=== PATIENT | male | born 1945 | race Caucasian/White ===

== ENCOUNTER 2021-05-05 09:29 | Inpatient (IN) | payer OTHER, SELFPAY ==
[2021-05-05] VITALS (144 sets, daily range): BP systolic 59–131; BP diastolic 36–67; PULSE 67–104; RESP 2–31; TEMP 36.4–37.2; O2SAT 94–100
--- NOTE | 2021-05-05 09:29 | RT.EKG_ITS ---
APPROVED REPORT Exam: Resting ECG Reason for Exam: WEAKNESS, SYNCOPE Patient Location: E HR:68 bpm ECG Measurements Heart Rate 68 AXIS VA 196 P 67 QRSd 135 QRS 26 QT 447 T -74 QTc 473 Conclusion Sinus rhythm Atrial premature complex. Nonspecific intraventricular conduction delay Nonspecific T abnormalities, diffuse leads.No comparison
--- NOTE | 2021-05-05 09:30 | DI.CT_ITS ---
Exam(s) CT HEAD WO EXAM: CT HEAD WO CLINICAL HISTORY: syncope, blunt trauma. TECHNIQUE: Imaging Protocol: Axial computed tomography images with coronal and sagittal reformatted images were created and reviewed COMPARISON: No exams were available for comparison FINDINGS: Ventricles and Extra axial spaces: Normal in size and morphology for the patient's age. Hemorrhage: None. Cerebral parenchyma: No evidence of an acute territorial infarct. There is an area of encephalomalac ia in the right temporal lobe. There are areas of decreased attenuation in the white matter most con sistent with chronic microvascular ischemic disease. Midline shift: None. Brainstem/Cerebellum: Normal. Calvarium: Normal. Visualized Paranasal sinuses/Mastoids: Clear. Soft Tissues: Unremarkable. IMPRESSION: 1. No acute intracranial process. 2. Results of this exam have been verbally communicated with provider. RADIATION DOSE DELIVERED: 730.77mGy.cm Total DLP DATA REPOSITORY: All CT scans at this facility are submitted to the National Radiology Data Registry (NRDR) Dose Index Registry (DIR) with the [employer] (ACR). RADIATION OPTIMIZATION: All CT scans at this facility use at least one of these dose optimization te chniques: automated exposure control; mA and/or kV adjustment per patient size (includes targeted exa ms where dose is matched to clinical indication); or iterative reconstruction.
--- NOTE | 2021-05-05 09:30 | DI.CT_ITS ---
Exam(s) CT CHEST/ABD/PEL W EXAM: CT CHEST/ABD/PEL W CLINICAL HISTORY: Syncope, GI bleed, epigastric pain TECHNIQUE: Imaging Protocol: Axial computed tomography images with coronal and sagittal reformatted images were created and reviewed CONTRAST MATERIAL: Intravenous: Omnipaque 350 Contrast volume:99 mL Oral: No COMPARISON: No exams were available for comparison FINDINGS: CHEST: Tracheobronchial tree: Patent where visualized. Pulmonary parenchyma: There is a small infiltrate seen in the right middle lobe. No suspicious pulmon cesilia nodules. Mild paraseptal emphysematous changes are present. Visualized thyroid gland: Unremarkable. Mediastinum and Sho: No dominant adenopathy or fluid collection. There is mild of diffuse thickening of the wall of the proximal esophagus. Pleura: No effusion or pneumothorax. Heart: The heart is not dilated. Coronary artery calcification. No pericardial effusion. Aorta: Thoracic aorta non-dilated. Atherosclerosis. Lymph nodes: Within normal limits. Soft tissues: Unremarkable. Bones:Age-appropriate degenerative changes. ABDOMEN: Liver: Normal density. Multiple round hypodensities are seen throughout the liver. The largest is in the left lobe measures 3 x 2.6 cm. Portal, Superior Mesenteric, and Splenic Veins: Unremarkable. Gallbladder and Biliary Tract: No radiodense calculus or dilation. Pancreas: Normal density, no abnormal calcifications or inflammatory process. Spleen: Normal. Adrenals: No masses seen. Kidneys: Normal size, contour and axis. No radiodense stones or obstructive uropathy. There are bilat eral simple cysts. The largest is in the midpole of the left kidney and measures 3.9 x 3.6 cm. Ther e is a hyperdense 1.6 x 1.3 cm exophytic nodule in the midpole of the right kidney posteriorly. This should be further evaluated with an ultrasound or MRI. Abdominal Aorta: Abdominal portion non-dilated. Atherosclerosis. Bowel: No obstruction or bowel wall thickening. Appendix is unremarkable. Extensive diverticulosis, b ut no evidence of acute diverticulitis. Peritoneal Cavity: No ascites, collection or mesenteric inflammatory response. No free air. Lymph Nodes: Within normal limits. Bones: Within normal limits for the patient's age. Soft Tissues: Small fat containing bilateral inguinal hernia. Surgical clips are seen in the pelvis. PELVIS: Bladder: Symmetric distention, no gross wall thickening. Reproductive Organs: Prior prostatectomy. Lymph Nodes: Within normal limits. Bones: Within normal limits. IMPRESSION: 1. No acute abdominal pelvic process. 2. 1.6 x 1.3 cm exophytic hyperdense right renal nodule. This may represent a hemorrhagic cyst, but f urther evaluation with an MRI is recommended. 3. Thickening of the wall of the proximal esophagus. Differential considerations include infectious/i nflammatory esophagitis or mass. This should be further evaluated with upper GI barium examination or upper endoscopy. 4. Small right middle lobe infiltrate. 5. Results of this exam have been verbally communicated with provider. Incidental Findings RADIATION DOSE DELIVERED: 1,249.6mGy.cm Total DLP DATA REPOSITORY: All CT scans at this facility are submitted to the National Radiology Data Registry (NRDR) Dose Index Registry (DIR) with the [employer] (ACR). RADIATION OPTIMIZATION: All CT scans at this facility use at least one of these dose optimization te chniques: automated exposure control; mA and/or kV adjustment per patient size (includes targeted exa ms where dose is matched to clinical indication); or iterative reconstruction.
--- NOTE | 2021-05-05 09:33 | W.ED.GENAD ---
Discharge Plan Disposition Patient Disposition: [facility] INPATIENT Condition: Improving Discharge Details Chief Complaint: GI Bleed Clinical Impression: Acute upper GI bleeding Primary Care Provider: Unknown,Unknown ED Provider: Edi Palumbo Home Meds and New Rx's Prescriptions: No Action aspirin [Aspir-81] 81 mg Tablet,Delayed Release (Dr/Ec) 81 mg PO DAILY RF: 0 Vitamin C 1,000 mg Tablet,Chewable 1,000 mg PO DAILY RF: 0 sertraline [Zoloft] 50 mg Tablet 50 mg PO BID RF: 0 Multi M Vitamin Tablet RF: 0 magnesium 200 mg Tablet 400 mg PO DAILY RF: 0 Vitamin D3 100 mcg (4,000 unit) Capsule 100 mcg PO DAILY RF: 0 doxycycline hyclate 120 mg Tablet,Delayed Release (Dr/Ec) 120 mg PO DAILY RF: 0 Medical Decision Making This is a 76-year-old male, patient of the [place], who states yesterday felt weak and had an episode of syncope without harming himself. Yesterday he had noticed dark tarry stool. Again this morning a dark tarry stool, he had 1 episode of coffee-ground emesis and then had a second syncopal event which she is was upright felt weak and fell to the ground striking his head. No prolonged loss of consciousness, denies headache. He is somewhat pale in appearance, normotensive with a pulse of 69. His exam reveals dark, tarry, guaiac positive stool. 2 peripheral IVs placed, screening labs including type and screen obtained. As [facility], we do not have comparison laboratories. Today white blood cell count is 8, hematocrit 27 with hemoglobin of 9.2, platelets 168. Coags unremarkable, chemistries notable for BUN of 65, creatinine 1.1. Troponin negative, SARS-CoV-[address] images are unremarkable of the head, abdomen and pelvis reveals a thickened esophagus, there is a question of subtle right middle lobe and will treat on chest imaging. Patient stable with no further episodes of emesis nor of dark tarry stool. He states he prefers a local hospitalization versus transfer to the [place]. Case discussed with Dr. Chaparro who will admit the patient. She requested I consult surgery for consideration of EGD during hospitalization. HPI General Mode of arrival: EMS. Date/Time Provider Initiated Documentation: 05/05/21 11:34. Information obtained by: patient and EMS. History of Present Illness 76 year old M presents to the emergency department with the chief complaint of Dark tarry stool, coffee-ground emesis, syncope at home, described as moderate, and is localized to the abdomen. Patient reports no radiation. Patient started experiencing this day(s) and it has been intermittent. No relieving factors improve symptom(s), No exacerbating factors reported . Patient notes loss of appetite, nausea/vomiting, syncope and other (Dark tarry stool); denies headaches. Patient did receive the following treatments prior to arrival, NSAID and Aspirin Related Data Home Medications Medication Instructions Recorded Confirmed ascorbic acid (vitamin C) [Vitamin 1,000 mg PO DAILY 05/05/21 05/05/21 C] aspirin [Aspir-81] 81 mg PO DAILY 05/05/21 05/05/21 cholecalciferol (vitamin D3) 100 mcg PO DAILY 05/05/21 05/05/21 [Vitamin D3] doxycycline hyclate 120 mg PO DAILY 05/05/21 05/05/21 magnesium 400 mg PO DAILY 05/05/21 05/05/21 multivitamin with iron-mineral tab 05/05/21 [Multi M Vitamin] sertraline [Zoloft] 50 mg PO BID 05/05/21 05/05/21 Allergies Allergy/AdvReac Type Severity Reaction Status Date / Time No Known Allergies Allergy Unverified 05/05/21 10:26 Review of Systems Narrative: No chest pain. Fully immunized against COVID-19. Denies headache or neck pain. 8 systems reviewed and otherwise negative. Takes aspirin and naproxen daily. [facility] Social History Smoking/Tobacco Use Status: Former Tobacco Use Smoking risk assessment performed?: Yes Alcohol Intake: former Substance use type: does not use Do you feel safe at home: Yes Do you feel safe in your relationship?: Yes Exam Narrative Exam Narrative: GEN: awake, alert, oriented 3. Pleasant, well groomed, interactive. Pale. HEAD: Normocephalic, small abrasion left superior scalp ENT: Mucous membranes moist, oropharynx unremarkable, External ear exam unremarkable EYES: PERRL, EOMI NECK: Full ROM, no CECI, no menigismus CHEST/RESP: Nontender, clear to auscultation bilateral, no wheeze/rhonchi/rales CARDIOVASCULAR: RRR, no murmur, rub zoë. 2+ Rad pulse bilateral ABDOMEN: Soft, nontender, no mass. +Bowel sounds. Dark tarry stool, guaiac positive. EXT: Full ROM, no edema, no rash Neuro: Grossly normal neurologic exam, conversant, interactive. Psych: Speech fluent, thoughts congruent, affect normal
[2021-05-05 09:49] LABS: Abs Immature Grans 0.06 10^3/uL (0.0-0.06); Absolute Basophil Count 0.05 10^3/uL (0.0-0.2); Absolute Eosinophil Count 0.18 10^3/uL (0.0-0.7); Absolute Lymphocyte Count 2.14 10^3/uL (1.2-3.4); Absolute Monocyte Count 0.58 10^3/uL (0.1-0.8); Absolute Neutrophil Count 5.84 10^3/uL (1.2-6.7); Basophils % 0.6; HCT 27.5 % (40.0-50.0); HGB 9.2 g/dL (13.5-17.5); Immature Grans % 0.7; Lymphocytes % 24.2; MCH 33.8 pg (27.0-33.0); MCHC 33.5 % (32.0-36.0); MCV 101.1 fL (80-95); MPV 12.3 fL (8.0-11.0); Monocytes % 6.6; Neutrophils % 65.9; Nucleated RBC 0 %; Platelet Count 168 10^3/uL (130-400); RBC 2.72 10^6/uL (4.36-5.78); RDW 13.4 % (11.8-14.1); RDW-SD 49.8 fL; WBC 8.85 10^3/uL (4.4-10.8)
[2021-05-05] MEDS: Pantoprazole 40 MG VIAL 80 MG IVP (09:50)
[2021-05-05] MEDS: Ondansetron 4 MG/2 ML VIAL IVP (09:50)
[2021-05-05] MEDS: PANTOPRAZOLE 80 MG in Normal Saline 100 ML 10 MG IV (09:58)
[2021-05-05 10:00] LABS: INR 1.1 (0.9-1.1); Prothrombin Time 10.6 sec (9.3-11.0)
[2021-05-05 10:04] LABS: ALT 20 U/L (16-63); AST 10 U/L (15-37); Albumin 3.1 g/dL (3.4-5.0); Alkaline Phosphatase 48 U/L (46-116); Anion Gap 6.4 mmol/L (3-11); BUN 65 mg/dL (7-18); Bilirubin, Total 0.5 mg/dL (0.2-1.0); CO2 26.6 mmol/L (21.0-32.0); CREATININE 1.1 mg/dL (0.70-1.30); Calcium 7.9 mg/dL (8.5-10.1); Chloride 109 mmol/L (98-107); Glucose 178 mg/dL (74-106); Magnesium 1.9 mg/dL (1.8-2.4); PTT Activated 18.9 sec (21.0-27.5); Sodium 142 mmol/L (136-145); Total Protein 5.5 g/dL (6.4-8.2); Troponin I < 0.05 ng/mL (<0.06)
[2021-05-05 10:17] LABS: Source Nasal/Nares
[2021-05-05] MEDS: Omnipaque 350 MG/ML 100 ML BTL IJ (10:37)
[2021-05-05] MEDS: Normal Saline - Diluent 50 ML VIAL IV (10:38)
[2021-05-05] MEDS: Normal Saline Flush 10 ML SYR IVP ×2 (10:38→20:55)
[2021-05-05] MEDS: Normal Saline 1,000 ML 125 ML IV ×3 (10:50→21:00)
[2021-05-05 11:08] LABS: COVID-19 PCR Negative (Negative)
--- NOTE | 2021-05-05 12:42 | NUR.NOTE ---
Nursing Note: Spoke with Nhi Lin, [facility], she stated that there were no beds available or services that he needs at this time. Gaviota Busch
--- NOTE | 2021-05-05 14:56 | HPE_ITS ---
Date of service: 05/05/21 Time of Service: 13:45 Assessment and Plan Assessment and plan (1) Upper GI bleeding: Status: Acute Assessment and plan: I suspect this is due to the unfortunate combination of the patient's medications: naprosyn, aspirin, SSRI's effect on platelets, and doxycycline's tendency to cause esophagitis/gastritis. NPO and hold above meds. IVF. Continue protonix drip initiated in the ED. General surgery consulted and is planning on performing an EGD tomorrow. Trend H/H Q6H (2) Anemia due to acute blood loss: Status: Acute Assessment and plan: I have ordered transfusion of 1 unit of pRBCs due to the patient's falling hemoglobin. Trend H/H q6H. Check orthostatics. I suspect that the syncope was due to symptomatic anemia/orthostasis and is the cause of the patient's EKG changes. (3) Syncope: Status: Chronic Assessment and plan: in setting of acute anemia/GI bleeding. Suspect this is due to symptomatic anemia. Cardiac monitoring. Repeat troponin. EKG changes are probably due to anemia - but would benefit from an echo once adequately transfused. (4) Lung infiltrate: Status: Acute Assessment and plan: Possible aspiration pneumonitis. The patient does not have a cough or sx of pneumonia. Will monitor. Should he develop sx, would treat with abx. (5) GERD (gastroesophageal reflux disease): Status: Chronic Assessment and plan: The patient should be on PPI and probably abstain from doxycycline in the future. (6) DVT prophylaxis: Status: Acute Assessment and plan: SCDs (7) Discharge planning issues: Status: Acute Assessment and plan: Full code Admit to ICU Total Critical Care Time 45 minutes. 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 He is not sure how long he was down, but when he came to it, he was nauseated and vomited multiple times - emetic contents were black. In the ED, he was found to have H/H of 9.2/27.5. He was initiated on protonix gtt. Hospitalist admission is requested. EGD is being planned for tomorrow. The patient denies abdominal pain. He does have chronic abdominal discomfort associated with IBS for which he was initiated on SSRI. Review of Systems All systems reviewed & are unremarkable except as noted in HPI and below PFSH Medical History Arthritis Chronic back pain GERD (gastroesophageal reflux disease) H/O prostate cancer IBS (irritable bowel syndrome) Surgical History History of radical prostatectomy S/P colonoscopy Family History Father Heart disease Son Heart disease Brother Heart disease Hypertension Paternal Grandfather Stroke aneurysm Social History Smoking/Tobacco Use Status: Former Tobacco Use Smoking risk assessment performed?: Yes Alcohol Intake: former Substance use type: does not use Do you feel safe at home: Yes Do you feel safe in your relationship?: Yes Meds Allergies and Home Medications Allergies Allergy/AdvReac Type Severity Reaction Status Date / Time No Known Allergies Allergy Unverified 05/05/21 10:26 Home Medications Medication Instructions Recorded Confirmed Type aspirin [Aspir-81] 81 mg PO DAILY 05/05/21 05/05/21 History doxycycline hyclate 120 mg PO DAILY 05/05/21 05/05/21 History naproxen [Naprosyn] 250 mg PO DAILY 05/05/21 05/05/21 History sertraline [Zoloft] 50 mg PO BID 05/05/21 05/05/21 History Exam Narrative Exam Narrative: General: Pleasant elderly male who, while colbert, looks pale, A&Ox3, appears comfortable Neurological: A&Ox3, no focal deficits Psychiatric: appropriate speech pattern/content Skin: Visible skin intact HEENT: Atraumatic, normocephalic, EOMI, MMM, receding gums, no submandibular or cervical lymphadenopathy, no goiter or JVD Cardiovascular: RRR, no m/r/g Lungs: crackles L base, otherwise CTAB Gastrointestinal: soft, nontender, nondistended Genitourinary: deferred Extremities: no edema BLE's, 1+ pedal pulses Results Imaging Additional studies: CT chest/abdomen/pelvis: 1. No acute abdominal pelvic process. 2. 1.6 x 1.3 cm exophytic hyperdense right renal nodule. This may represent a hemorrhagic cyst, but further evaluation with an MRI is recommended. 3. Thickening of the wall of the proximal esophagus. Differential considerations include infectious/inflammatory esophagitis or mass. This should be further evaluated with upper GI barium examination or upper endoscopy. 4. Small right middle lobe infiltrate. 5. Results of this exam have been verbally communicated with provider. EKG: NSR, HR 68, nonspecific ST-T changes (EKG done whiLe patient is anemic) with inferolateral T wave inversions. Labs Result diagrams: 05/05/21 16:13 05/05/21 09:34 Labs: Laboratory Results - last 24 hr 05/05/21 05/05/21 05/05/21 09:34 09:34 09:34 WBC 8.85 RBC 2.72 L Hgb 9.2 L Hct 27.5 L MCV 101.1 H MCH 33.8 H MCHC 33.5 RDW 13.4 Plt Count 168 MPV 12.3 H Immature Gran % 0.7 Neutrophils % 65.9 Lymphocytes % 24.2 Monocytes % 6.6 Eosinophils % 2.0 Basophils % 0.6 Nucleated RBC % 0 Absolute Neutrophils 5.84 Absolute Lymphocytes 2.14 Absolute Monocytes 0.58 Absolute Eosinophils 0.18 Absolute Basophils 0.05 PT 10.6 INR 1.1 APTT Sodium 142 Potassium 4.0 Chloride 109 H Carbon Dioxide 26.6 Anion Gap 6.4 BUN 65 H Creatinine 1.1 Estimated GFR/1.73 m2 >= 60.00 Glucose 178 H Calcium 7.9 L Magnesium 1.9 Total Bilirubin 0.5 AST 10 L ALT 20 Alkaline Phosphatase 48 Troponin I < 0.05 Total Protein 5.5 L Albumin 3.1 L COVID-19 Source SARS-CoV-2 (PCR) Patient ABO/Rh Antibody Screen 05/05/21 05/05/21 05/05/21 09:34 09:34 10:12 WBC RBC Hgb Hct MCV MCH MCHC RDW Plt Count MPV Immature Gran % Neutrophils % Lymphocytes % Monocytes % Eosinophils % Basophils % Nucleated RBC % Absolute Neutrophils Absolute Lymphocytes Absolute Monocytes Absolute Eosinophils Absolute Basophils PT INR APTT 18.9 L Sodium Potassium Chloride Carbon Dioxide Anion Gap BUN Creatinine Estimated GFR/1.73 m2 Glucose Calcium Magnesium Total Bilirubin AST ALT Alkaline Phosphatase Troponin I Total Protein Albumin COVID-19 Source Nasal/Nares SARS-CoV-2 (PCR) Negative Patient ABO/Rh O Positive Antibody Screen NEGATIVE Last Vital Signs Temp 36.8 C 05/05/21 13:34 Pulse 75 05/05/21 13:34 Resp 2 L 05/05/21 13:34 BP 109/55 L 05/05/21 13:34 Pulse Ox 99 05/05/21 13:34
[2021-05-05 16:18] LABS: HCT 23.2 % (40.0-50.0); HGB 7.5 g/dL (13.5-17.5)
[2021-05-05] MEDS: Acetaminophen 325 MG TAB 650 MG PO (20:38)
[2021-05-05] MEDS: diphenhydrAMINE 25 MG CAP PO (20:38)
--- NOTE | 2021-05-05 20:55 | SCONE_ITS ---
Date of service: 05/05/21 Time of Service: 20:55 Assessment and Plan Assessment and plan (1) Upper GI bleeding: Status: Acute Assessment and plan: -PPI drip -carafate -trend hgb EGD in am risks: bleeding/infection/perforation/aspiration/anethesia stop asa/nsaid's. diet & exercise for heart disease. supportiev care 60 minutes spent in consultation today This document was created using voice activated software and may contain errors (2) GERD (gastroesophageal reflux disease): Status: Chronic (3) Acute upper GI bleeding: Status: Acute History of Present Illness Narrative: from ED: his is a 76-year-old male, patient of the [place], who states yesterday felt weak and had an episode of syncope without harming himself. Yesterday he had noticed dark tarry stool. Again this morning a dark tarry stool, he had 1 episode of coffee-ground emesis and then had a second syncopal event which she is was upright felt weak and fell to the ground striking his head. No prolonged loss of consciousness, denies headache. Patient is a 76-year-old male with profound anemia that I am asked to see by Dr. Chaparro. I did review the notes from the ER and from Dr. Mcneill. I definitely agree with her assessment as to the cause of the anemia. Patient is in the ICU and is being aggressively treated for his anemia including PPI, Carafate and blood transfusion. At the time of this interview, the patient is upstairs in the ICU. His accompanies him. He adamantly denies any abdominal pain. He denies any nausea vomiting. He denies any heartburn indigestion type symptoms. He says he has never had stomach problems before. He is not on any stomach medication. He was on aspirin, taking Naprosyn, and was also on doxycycline. He denies any bright red blood per rectum. He was having dark tarry stools yesterday and today only. He has had in colonoscopy in the past. This was done in the [place]. He does not know the results. His thinks he had polyps in the past. sHe does not want type of polyps they were. He is scheduled for colon oscopy at the [place] later this fall. Does require an EGD. We will perform labs in the a.m. Informed consent is obtained explaining risks and benefits of procedure including but not limited to: Bleeding, infection, pneumonia, blood clots, perforation, aspiration, complications of anesthesia, other unforetold complications. Patient himself has never had a heart attack or stroke. His father had a heart attack and both his brothers have had a heart attack so he was on aspirin for prophylaxis. Consults Consult date: 05/05/21 Review of Systems All systems reviewed & are unremarkable except as noted in HPI and below PFSH Medical History Arthritis Chronic back pain GERD (gastroesophageal reflux disease) H/O prostate cancer IBS (irritable bowel syndrome) Surgical History History of radical prostatectomy S/P colonoscopy Family History Father Heart disease Son Heart disease Brother Heart disease Hypertension Paternal Grandfather Stroke aneurysm Social History Smoking/Tobacco Use Status: Former Tobacco Use Smoking risk assessment performed?: Yes Alcohol Intake: former Substance use type: does not use Do you feel safe at home: Yes Do you feel safe in your relationship?: Yes Exam Cardio Rate: regular rate Rhythm: regular rhythm GI Palpation: soft Other: no abdominal pain. good BS Extrem General: no clubbing, cyanosis or edema Results Last Vital Signs Temp 36.8 C 05/05/21 13:34 Pulse 82 05/05/21 15:16 Resp 16 05/05/21 15:20 BP 89/52 L 05/05/21 15:16 Pulse Ox 99 05/05/21 15:20 Labs Result diagrams: 05/05/21 16:13 05/05/21 09:34 Labs: Laboratory Results - last 24 hr 05/05/21 05/05/21 05/05/21 09:34 09:34 09:34 WBC 8.85 RBC 2.72 L Hgb 9.2 L Hct 27.5 L MCV 101.1 H MCH 33.8 H MCHC 33.5 RDW 13.4 Plt Count 168 MPV 12.3 H Immature Gran % 0.7 Neutrophils % 65.9 Lymphocytes % 24.2 Monocytes % 6.6 Eosinophils % 2.0 Basophils % 0.6 Nucleated RBC % 0 Absolute Neutrophils 5.84 Absolute Lymphocytes 2.14 Absolute Monocytes 0.58 Absolute Eosinophils 0.18 Absolute Basophils 0.05 PT 10.6 INR 1.1 APTT Sodium 142 Potassium 4.0 Chloride 109 H Carbon Dioxide 26.6 Anion Gap 6.4 BUN 65 H Creatinine 1.1 Estimated GFR/1.73 m2 >= 60.00 Glucose 178 H Calcium 7.9 L Magnesium 1.9 Total Bilirubin 0.5 AST 10 L ALT 20 Alkaline Phosphatase 48 Troponin I < 0.05 Total Protein 5.5 L Albumin 3.1 L COVID-19 Source SARS-CoV-2 (PCR) Patient ABO/Rh Antibody Screen Crossmatch 05/05/21 05/05/21 05/05/21 09:34 09:34 10:12 WBC RBC Hgb Hct MCV MCH MCHC RDW Plt Count MPV Immature Gran % Neutrophils % Lymphocytes % Monocytes % Eosinophils % Basophils % Nucleated RBC % Absolute Neutrophils Absolute Lymphocytes Absolute Monocytes Absolute Eosinophils Absolute Basophils PT INR APTT 18.9 L Sodium Potassium Chloride Carbon Dioxide Anion Gap BUN Creatinine Estimated GFR/1.73 m2 Glucose Calcium Magnesium Total Bilirubin AST ALT Alkaline Phosphatase Troponin I Total Protein Albumin COVID-19 Source Nasal/Nares SARS-CoV-2 (PCR) Negative Patient ABO/Rh O Positive Antibody Screen NEGATIVE Crossmatch See Detail 05/05/21 16:13 WBC RBC Hgb 7.5 L Hct 23.2 L MCV MCH MCHC RDW Plt Count MPV Immature Gran % Neutrophils % Lymphocytes % Monocytes % Eosinophils % Basophils % Nucleated RBC % Absolute Neutrophils Absolute Lymphocytes Absolute Monocytes Absolute Eosinophils Absolute Basophils PT INR APTT Sodium Potassium Chloride Carbon Dioxide Anion Gap BUN Creatinine Estimated GFR/1.73 m2 Glucose Calcium Magnesium Total Bilirubin AST ALT Alkaline Phosphatase Troponin I Total Protein Albumin COVID-19 Source SARS-CoV-2 (PCR) Patient ABO/Rh Antibody Screen Crossmatch
[2021-05-05] MEDS: Sucralfate 1 GM TAB PO (22:46)
[2021-05-06] VITALS (111 sets, daily range): BP systolic 81–122; BP diastolic 33–64; PULSE 58–97; RESP 11–31; TEMP 36.7–37.5; TEMPC 36.1; O2SAT 79–100; BMI 22.2
[2021-05-06] MEDS: IRON SUCROSE COMPLEX 200 MG in Normal Saline 100 ML 400 MG IVPB (00:38)
[2021-05-06 02:48] LABS: HGB 7.7 g/dL (13.5-17.5)
[2021-05-06 03:05] LABS: Troponin I < 0.05 ng/mL (<0.06)
[2021-05-06] MEDS: Normal Saline 1,000 ML 125 ML IV (04:34)
[2021-05-06 07:15] LABS: Abs Immature Grans 0.02 10^3/uL (0.0-0.06); Absolute Basophil Count 0.03 10^3/uL (0.0-0.2); Absolute Lymphocyte Count 1.52 10^3/uL (1.2-3.4); Absolute Monocyte Count 0.33 10^3/uL (0.1-0.8); Basophils % 0.5; Eosinophils % 3.4; HGB 7.7 g/dL (13.5-17.5); Immature Grans % 0.3; Lymphocytes % 25.9; MCH 32.9 pg (27.0-33.0); MCHC 32.1 % (32.0-36.0); MCV 102.6 fL (80-95); MPV 12.6 fL (8.0-11.0); Monocytes % 5.6; Neutrophils % 64.3; Nucleated RBC 0 %; Platelet Count 121 10^3/uL (130-400); RBC 2.34 10^6/uL (4.36-5.78); RDW 14.7 % (11.8-14.1); RDW-SD 54.8 fL; WBC 5.86 10^3/uL (4.4-10.8)
[2021-05-06 07:28] LABS: Anion Gap 3.7 mmol/L (3-11); BUN 31 mg/dL (7-18); CO2 28.3 mmol/L (21.0-32.0); Calcium 7.6 mg/dL (8.5-10.1); Chloride 113 mmol/L (98-107); Glucose 92 mg/dL (74-106); Magnesium 1.9 mg/dL (1.8-2.4); Potassium 3.9 mmol/L (3.5-5.1); Sodium 145 mmol/L (136-145)
--- NOTE | 2021-05-06 07:46 | ANES.PREOP_ITS ---
General Info Date of Service Date Performed: 05/06/21 Height: 5 ft 7 in Weight: 64.4 kg Body Mass Index (BMI): 22.2 Surgical Procedure: Operation Date: 05/06/21 08:20 Proposed Procedures Side Surgeon p Gastroscopy Samira Richardson DO Meds Allergies and Home Medications Allergies Allergy/AdvReac Type Severity Reaction Status Date / Time No Known Allergies Allergy Unverified 05/05/21 10:26 Home Medication Medication Instructions Recorded aspirin [Aspir-81] 81 mg PO DAILY 05/05/21 doxycycline hyclate 120 mg PO DAILY 05/05/21 naproxen [Naprosyn] 250 mg PO DAILY 05/05/21 sertraline [Zoloft] 50 mg PO BID 05/05/21 Current Visit Medications: Current Medications Generic Name Dose Route Start Last Admin Trade Name Freq PRN Reason Stop Dose Admin Acetaminophen 650 mg 05/05/21 12:14 Acetaminophen 650 Mg Supp [place] Q4H PRN PRN Acetaminophen 650 mg 05/05/21 23:00 Acetaminophen 325 Mg Tab PO TODAY FRANCHESKA Dimethicone/Zinc Oxide 0 gm 05/05/21 12:14 Misbah Protect Cream 142 Gm Tube TP PRN PRN Diphenhydramine HCl 0 mg 05/05/21 22:15 Diphenhydramine 25 Mg Cap PO TODAY FRANCHESKA Sodium Chloride 500 mls @ 0 mls/hr 05/05/21 09:28 Saline 500ml Bag IV PRN PRN As Directed Ringer's Solution 1,000 mls @ 125 mls/hr 05/06/21 07:30 IV INFUSION FRANCHESKA IV Miscellaneous Supplies 1 each 05/05/21 09:30 Iv Access IV DIRECTED FRANCHESKA Iohexol 100 ml 05/05/21 10:45 05/05/21 10:37 Omnipaque 350 Mg/Ml 100 Ml Btl IJ 06/04/21 23:59 100 ml DIRECTED FRANCHESKA Administration Ondansetron HCl 4 mg 05/05/21 12:18 Ondansetron 4 Mg/2 Ml Vial IVP Q6H PRN PRN Pantoprazole Sodium 40 mg 05/06/21 08:30 Pantoprazole 40 Mg Vial IVP BID FRANCHESKA Sodium Chloride 0 ml 05/05/21 09:28 05/05/21 20:55 Normal Saline Flush 10 Ml Syr IVP 40 ml PRN PRN Administration Sodium Chloride 50 ml 05/05/21 10:45 05/05/21 10:38 Normal Saline - Diluent 50 Ml Vial IV 50 ml .FOR DI USE FRANCHESKA Administration Sucralfate 1 gm 05/05/21 22:00 05/05/21 22:46 Sucralfate 1 Gm Tab PO 1 gm AC & HS FRANCHESKA Administration PFSH Active Problems Active Problems: Problem Status Onset Code Lung infiltrate R91.8 Discharge planning issues Z02.9 DVT prophylaxis Z29.9 Syncope R55 Anemia due to acute blood loss D62 Upper GI bleeding K92.2 GERD (gastroesophageal reflux disease) K21.9 Acute upper GI bleeding K92.2 Medical History Medical History Arthritis Chronic back pain GERD (gastroesophageal reflux disease) H/O prostate cancer IBS (irritable bowel syndrome) Surgical History Surgical History History of radical prostatectomy S/P colonoscopy Tobacco Smoking/Tobacco Use Status: Former Tobacco Use Alcohol Alcohol Intake: former Substance Use Substance use type: does not use Vital Signs and Lab Results Vital Signs Most Recent Vital Signs in EMR: Most Recent Vital Signs Temp Pulse Resp BP Pulse Ox 37.1 C 86 19 106/56 L 97 05/06/21 04:41 05/06/21 04:41 05/06/21 04:41 05/06/21 04:00 05/06/21 04:41 Lab Results Result Diagrams: 05/06/21 06:25 05/06/21 06:25 Blood Type / Crossmatch: Patient ABO/Rh O Positive 05/05/21 09:34 05/05/21 Antibody Screen NEGATIVE 05/05/21 09:34 05/05/21 Crossmatch See Detail 05/05/21 09:34 05/05/21 Complete Blood Count: White Blood Count 5.86 10^3/uL (4.4-10.8) 05/06/21 06:25 05/06/21 Red Blood Count 2.34 10^6/uL (4.36-5.78) L 05/06/21 06:25 05/06/21 Hemoglobin 7.7 g/dL (13.5-17.5) L 05/06/21 06:25 05/06/21 Hematocrit 24.0 % (40.0-50.0) L 05/06/21 06:25 05/06/21 Platelet Count 121 10^3/uL (130-400) L 05/06/21 06:25 05/06/21 Complete Metabolic Panel: Sodium Level 145 mmol/L (136-145) 05/06/21 06:25 05/06/21 Potassium Level 3.9 mmol/L (3.5-5.1) 05/06/21 06:25 05/06/21 Chloride Level 113 mmol/L (98-107) H 05/06/21 06:25 05/06/21 Carbon Dioxide Level 28.3 mmol/L (21.0-32.0) 05/06/21 06:25 05/06/21 Blood Urea Nitrogen 31 mg/dL (7-18) H 05/06/21 06:25 05/06/21 Creatinine 1.0 mg/dL (0.70-1.30) 05/06/21 06:25 05/06/21 Estimated GFR/1.73 m2 >= 60.00 (mL/min/1.73m2) 05/06/21 06:25 05/06/21 Magnesium Level 1.9 mg/dL (1.8-2.4) 05/06/21 06:25 05/06/21 Calcium Level 7.6 mg/dL (8.5-10.1) L 05/06/21 06:25 05/06/21 Albumin 3.1 g/dL (3.4-5.0) L 05/05/21 09:34 05/05/21 Glucose Level 92 mg/dL (74-106) 05/06/21 06:25 05/06/21 Liver Function Panel: Alanine Aminotransferase (ALT/SGPT) 20 U/L (16-63) 05/05/21 09:34 05/05/21 Aspartate Amino Transf (AST/SGOT) 10 U/L (15-37) L 05/05/21 09:34 05/05/21 Coagulation Panel: INR International Normalized Ratio 1.1 (0.9-1.1) 05/05/21 09:34 05/05/21 Prothrombin Time 10.6 sec (9.3-11.0) 05/05/21 09:34 05/05/21 Activated Partial Thromboplast Time 18.9 sec (21.0-27.5) L 05/05/21 09:34 05/05/21 Cardiac Panel: 2 Troponin I < 0.05 ng/mL (<0.06) 05/06/21 02:30 05/06/21 Arterial Blood Gas: No Data to Display Venous Blood Gas: No Data to Display Pancreas Panel: No Data to Display Thyroid Panel: No Data to Display Infectious Disease: Coronavirus (COVID-19)(PCR) Negative (Negative) 05/05/21 10:12 05/05/21 Coronavirus 2019 Source Nasal/Nares 05/05/21 10:12 05/05/21 Blood Cultures: No Data to Display Toxicology Panel: No Data to Display Imaging and Studies Imaging and Studies EKG Summary: Conclusion Sinus rhythm Atrial premature complex. Nonspecific intraventricular conduction delay Nonspecific T abnormalities, diffuse leads.No comparison 05/05/21 Anesthesia Assessment and Plan Anesthesia History Personal History: No History of Anesthesia Complications Family History: No Family History of Anesthesia Complications Exercise Tolerance Exercise Tolerance: Metabolic Equivalents<4 Pertinent Negatives Pertinent Negatives: No Symptoms of GERD (hx gerd) Cardiac & Pulmonary Exam Cardiac Exam: Normal S1/S2 Heart Sounds Pulmonary Exam: Clear Bilateral Breath Sounds Airway Exam Known Difficult Airway: No Mallampati Class: 2 Mouth Opening: Normal (> 3cm) Thyromental Distance: Greater than 3 cm Neck Range of Motion: Full ROM Neck Circumference: Normal Teeth Condition: Normal Dentition ASA Classification ASA Score: ASA 2 Emergency Case?: Yes NPO Status NPO Status: NPO Clears >2 hours, Solids >8 hours Anesthesia Plan Resuscitation Status: Full Code Anesthesia Technique: General Anesthesia Airway Planned: Natural Airway Monitors Used: Standard Monitors
[2021-05-06 07:52] LABS: Absolute Neutrophil Count 3.77 10^3/uL (1.2-6.7)
[2021-05-06 07:53] LABS: Diff Comment Diff Reviewed; Macrocytosis 1+
--- NOTE | 2021-05-06 08:23 | INITIAL_ITS ---
- If Service Date Differs Date of service: 05/06/21 Time of Service: 08:23 Care Management Initial Assess REASON FOR HOSPITALIZATION:: Upper GI bleeding, symptomatic anemia PAST MEDICAL HISTORY/PAST SURGICAL HISTORY:: Arthritis, chronic back pain, GERD, h/o prostate cancer, IBS, radical prostatectomy, colonoscopy PREVIOUS FUNCTIONAL STATUS/SOCIAL/FAMILY SUPPORTS:: Donald resides in [place], [place] with his spouse, Dahiana. He is independent at baseline in the community. CURRENT FUNCTIONAL STATUS:: Kervin remains in the ICU at this time. ADVANCE DIRECTIVES:: None on file at [facility]. Has patient been provided with info about the portal/API?: No Did the patient sign up for the portal?: No CODE STATUS:: Full Code INSURANCE COVERAGE / FINANCIAL ISSUES:: [facility] CURRENT HOME/COMMUNITY SERVICES/EQUIPMENT:: [place] PRIMARY CARE PHYSICIAN:: GUERDA POTENTIAL DISCHARGE NEEDS:: Follow up appointments. PATIENT/FAMILY EDUCATION NEEDS:: Review discharge instructions, discuss Ask Me Three. ANTICIPATED BARRIERS TO DISCHARGE:: None identified. TRANSPORTATION:: Via private vehicle with his spouse, Dahiana. PLAN:: Kervin continues to be closely treated and monitored at this time. CM continues to follow.
--- NOTE | 2021-05-06 08:31 | W.PM.ENDDOP ---
Date of service: 05/06/21 Time of Service: 08:31 Endoscopy Report DATE OF PROCEDURE: 05/06/21 PRE-OP DIAGNOSIS: GI bleed POST-OP DIAGNOSIS: other (None moderate duodenitis with punctate ulceration/mild gastritis/moderate esophagitis with ulceration and very small hiatal hernia) SURGEON: Samira Richardson ANESTHESIA TYPE: General LMA/ETT ESTIMATED BLOOD LOSS: 2 PATHOLOGY: other COMPLICATIONS: None DISPOSITION: PACU PROCEDURE DESCRIPTION: After informed consent was obtained the patient was take to the procedure room and placed in a supine position. Monitors were applied and a time out was done. The patients name, date of , procedure type, allergies to medications and metal in their body was reviewed. A bite block was placed and the patient was sedated. Once sedated and comfortable the gastroscope was advanced through the oropharynx which was grossly normal into the esophagus. The proximal and mid-esophagus were normal. In the distal esophagus there was no: Varices, diverticulum, stricture apparent. He does have moderate esophagitis with an esophageal ulcer. He does have quite a bit of edema the esophagus this also could represent a small mass in the esophagus multiple biopsies of this area is taken and is friable and bleeds readily but does cease. I did review his CT scan of the chest. The scope was advanced into the stomach and through the pylorus into the 3rd portion of the duodenum. The duodenum was noted: Moderate duodenitis with punctate ulceration. There is no signs of active or old bleeding.. Biopsies were done, all specimens are retrieved and no significant bleeding is noted. The scope was retracted back into the stomach and biopsies were done to rule out H. pylori. There were no ulcers, does have mild gastritis the scope was retroflexed. The cardia and fundus were noted to be normal. There small, 1 cm hiatal hernia noted. The scope was retracted back into the esophagus and biopsies were done of the GE junction to rule out Nathan's. The Z line was regular. The GE junction was at [] cm. The scope was removed and the patient was woken up and taken back to [facility] in stable condition. Follow up: Follow-up in my office in 2 weeks time for hemoglobin check and to review the biopsy results
--- NOTE | 2021-05-06 08:38 | W.PM.PROGNOT ---
Date of Service Date of service: 05/06/21 Time of Service: 11:47 Assessment and Plan Assessment and plan (1) Upper GI bleeding: Status: Acute Assessment and plan: Due to esophageal ulcer/esophagitis, gastritis, duodenitis Switched to protonix boluses. Started on carafate - agree with both. I suspect this is due to the unfortunate combination of the patient's medications: naprosyn, aspirin, SSRI's effect on platelets, and doxycycline's tendency to cause esophagitis/gastritis. Defer diet to general surgery. Getting 1 more unit of blood. The bleeding appears to have stopped. (2) Anemia due to acute blood loss: Status: Acute Assessment and plan: 2nd unit of pRBCs is being transfused. Recheck H/H in am (3) Syncope: Status: Chronic Assessment and plan: in setting of acute anemia/GI bleeding. Suspect this is due to symptomatic anemia. Cardiac monitoring. Repeat troponin. EKG changes are probably due to anemia. Trops negative. Repeat EKG when transfused. Would benefit from an outpatient echo. (4) Lung infiltrate: Status: Acute Assessment and plan: Possible aspiration pneumonitis. The patient does not have a cough or sx of pneumonia. Will monitor. Should he develop sx, would treat with abx. (5) GERD (gastroesophageal reflux disease): Status: Chronic Assessment and plan: The patient should be on PPI and probably abstain from doxycycline in the future. (6) DVT prophylaxis: Status: Acute Assessment and plan: SCDs (7) Discharge planning issues: Status: Acute Assessment and plan: Full code Keep in ICU Total Critical Care Time 30 minutes. Subjective Subjective Interval history since last seen: Down for EGD: esophagitis, esophageal ulcer (not actively bleeding), mild gastritis, duodenitis. VSS. Got 1 unit blood last night. Getting another unit today. No BM/abdominal pain/nausea. UOP 650+/12 hrs. NS@125 cc/hr. Exam Narrative Exam Narrative: General: Pleasant elderly male who, while colbert, looks less pale, A&Ox3, appears comfortable, just waking up from anesthesia HEENT: EOMI, MMM Cardiovascular: RRR, no m/r/g Lungs: CTAB Gastrointestinal: soft, nontender, nondistended Extremities: no edema BLE's, 1+ pedal pulses Objective Last Vital Signs Temp 37.1 C 05/06/21 04:41 Pulse 86 05/06/21 04:41 Resp 19 05/06/21 04:41 BP 106/56 L 05/06/21 04:00 Pulse Ox 97 05/06/21 04:41 Laboratory Results - last 24 hr 05/05/21 05/05/21 05/05/21 09:34 09:34 09:34 WBC 8.85 RBC 2.72 L Hgb 9.2 L Hct 27.5 L MCV 101.1 H MCH 33.8 H MCHC 33.5 RDW 13.4 Plt Count 168 MPV 12.3 H Immature Gran % 0.7 Neutrophils % 65.9 Lymphocytes % 24.2 Monocytes % 6.6 Eosinophils % 2.0 Basophils % 0.6 Nucleated RBC % 0 Absolute Neutrophils 5.84 Absolute Lymphocytes 2.14 Absolute Monocytes 0.58 Absolute Eosinophils 0.18 Absolute Basophils 0.05 RBC Morphology Macrocytosis PT 10.6 INR 1.1 APTT Sodium 142 Potassium 4.0 Chloride 109 H Carbon Dioxide 26.6 Anion Gap 6.4 BUN 65 H Creatinine 1.1 Estimated GFR/1.73 m2 >= 60.00 Glucose 178 H Calcium 7.9 L Magnesium 1.9 Total Bilirubin 0.5 AST 10 L ALT 20 Alkaline Phosphatase 48 Troponin I < 0.05 Total Protein 5.5 L Albumin 3.1 L COVID-19 Source SARS-CoV-2 (PCR) Patient ABO/Rh Antibody Screen Crossmatch 05/05/21 05/05/21 05/05/21 09:34 09:34 10:12 WBC RBC Hgb Hct MCV MCH MCHC RDW Plt Count MPV Immature Gran % Neutrophils % Lymphocytes % Monocytes % Eosinophils % Basophils % Nucleated RBC % Absolute Neutrophils Absolute Lymphocytes Absolute Monocytes Absolute Eosinophils Absolute Basophils RBC Morphology Macrocytosis PT INR APTT 18.9 L Sodium Potassium Chloride Carbon Dioxide Anion Gap BUN Creatinine Estimated GFR/1.73 m2 Glucose Calcium Magnesium Total Bilirubin AST ALT Alkaline Phosphatase Troponin I Total Protein Albumin COVID-19 Source Nasal/Nares SARS-CoV-2 (PCR) Negative Patient ABO/Rh O Positive Antibody Screen NEGATIVE Crossmatch See Detail 05/05/21 05/06/21 05/06/21 16:13 02:30 02:30 WBC RBC Hgb 7.5 L 7.7 L Hct 23.2 L 24.0 L MCV MCH MCHC RDW Plt Count MPV Immature Gran % Neutrophils % Lymphocytes % Monocytes % Eosinophils % Basophils % Nucleated RBC % Absolute Neutrophils Absolute Lymphocytes Absolute Monocytes Absolute Eosinophils Absolute Basophils RBC Morphology Macrocytosis PT INR APTT Sodium Potassium Chloride Carbon Dioxide Anion Gap BUN Creatinine Estimated GFR/1.73 m2 Glucose Calcium Magnesium Total Bilirubin AST ALT Alkaline Phosphatase Troponin I < 0.05 Total Protein Albumin COVID-19 Source SARS-CoV-2 (PCR) Patient ABO/Rh Antibody Screen Crossmatch 05/06/21 05/06/21 06:25 06:25 WBC 5.86 D RBC 2.34 L Hgb 7.7 L Hct 24.0 L MCV 102.6 H MCH 32.9 MCHC 32.1 RDW 14.7 H Plt Count 121 L MPV 12.6 H Immature Gran % 0.3 Neutrophils % 64.3 Lymphocytes % 25.9 Monocytes % 5.6 Eosinophils % 3.4 Basophils % 0.5 Nucleated RBC % 0 Absolute Neutrophils 3.77 Absolute Lymphocytes 1.52 Absolute Monocytes 0.33 Absolute Eosinophils 0.20 Absolute Basophils 0.03 RBC Morphology See Below Macrocytosis 1+ PT INR APTT Sodium 145 Potassium 3.9 Chloride 113 H Carbon Dioxide 28.3 Anion Gap 3.7 BUN 31 H D Creatinine 1.0 Estimated GFR/1.73 m2 >= 60.00 Glucose 92 D Calcium 7.6 L Magnesium 1.9 Total Bilirubin AST ALT Alkaline Phosphatase Troponin I Total Protein Albumin COVID-19 Source SARS-CoV-2 (PCR) Patient ABO/Rh Antibody Screen Crossmatch
--- NOTE | 2021-05-06 08:48 | NUR.NOTE ---
RN speaks to lab and reports blood bank ID is incorrect; patient 's name is spelled wrong. New blood bank ID will need to be placed by lab. technical associate agrees and will get to same as soon as patient returns from OR where he is undergoing an EGD.Nursing Note:
[2021-05-06] MEDS: Normal Saline 1,000 ML 80 ML IV (08:51)
--- NOTE | 2021-05-06 09:00 | STOM_PTH ---
PATIENT: Kervin Bailey LOC: U#:[id number] AGE/SX: 76/M ROOM: 208 RE05/05/[address]: Louisa Chaparro : 1945 BED: A DIS: 05/10/2021 SPEC #: [id number] RECD: 05/06/21 12:35 STATUS: SOUBurak REQ #: [id number] YESENIA: 05/06/21 09:[address]: Louisa Chaparro DEPT: Surgical Specimen RECD BY: Teena Graves ENTERED: 05/06/21 12:38 SP TYPE: STOMACH OTHR DR: Samira Richardson Unknown,Unknown Tissues: 1 - BIOPSY BOWEL 2 - BIOPSY BOWEL 3 - STOMACH BIOPSY 4 - STOMACH BIOPSY 5 - ESOPHAGUS BIOPSY 6 - ESOPHAGUS BIOPSY Procedures: GROSS AND MICRO LEVEL 4 Comments: [id number]
--- NOTE | 2021-05-06 09:32 | W.ANESPOSTOP ---
Postoperative Evaluation Date, Time and Location Date Performed: 05/06/21 Time Performed: 09:32 Patient Location: PACU Vital Signs Most Recent Imported Vital Signs: Most Recent Vital Signs Temp Pulse Resp BP Pulse Ox 37.1 C 86 19 106/56 L 97 05/06/21 04:41 05/06/21 04:41 05/06/21 04:41 05/06/21 04:00 05/06/21 04:41 Most Recent Manually Entered Vital Signs: Adult Blood Pressure: 97/52 Heart Rate: 72 Respirations: 14 Oxygen Saturation (%): 97 Temperature (C): 36.1 C Pain Score (0-10 Scale): 0 Pain Score Most Recent Pain Score: Most Recent Pain Score Pain Level 0 05/06/21 04:41 Assessment Mental Status: Awake (Alert & Oriented to Patient Baseline) Airway and Respiratory Function: Patent airway with normal (patient baseline) respiratory exam Cardiovascular Function: Hemodynamically Stable Hydration Status: Adequately Hydrated Nausea & Vomiting: No Nausea or Vomiting Pain: Pt. Denies Any Pain Peripheral Nerve Block: Patient did not receive a nerve block
[2021-05-06] MEDS: Lactated Ringers 1,000 ML 125 ML IV (10:29)
[2021-05-06] MEDS: Sucralfate 1 GM TAB PO ×4 (10:30→22:12)
[2021-05-06] MEDS: Pantoprazole 40 MG VIAL IVP ×2 (10:31→19:56)
--- NOTE | 2021-05-06 10:39 | NUR.NOTE ---
Lab affixes new blood bank band.Nursing Note:
--- NOTE | 2021-05-06 10:52 | NUR.NOTE ---
Patient says he drinks 5 cans of carbonated water per day. Nursing Note:
[2021-05-06] MEDS: Lactated Ringers 500 ML IV (11:57)
--- NOTE | 2021-05-06 12:10 | W.PM.PROGNOT ---
Date of Service Date of service: 05/06/21 Time of Service: 10:10 Assessment and Plan Assessment and plan (1) Upper GI bleeding: Status: Acute Assessment and plan: POD#0 s/p EGD -Continue supportive care, PPI, Carafate -Hb 7.7 this AM, repeat for 6pm pending -F/u results of EGD done today -further recommendations to follow (2) Anemia due to acute blood loss: Status: Acute (3) Lung infiltrate: Status: Acute (4) Syncope: Status: Chronic Qualifiers: Syncope type: unspecified Qualified Code(s): R55 - Syncope and collapse (5) GERD (gastroesophageal reflux disease): Status: Chronic Qualifiers: Esophagitis presence: esophagitis presence not specified Qualified Code(s): K21.9 - Gastro-esophageal reflux disease without esophagitis Subjective Subjective Patient reports: no new complaints and feels better; denies bowel movement, nausea and vomiting Exam Const General: cooperative, comfortable and no acute distress Resp Effort & Inspection: normal respiratory effort, no audible wheezes and no respiratory distress GI Inspection: normal to inspection Palpation: soft, no guarding and nontender Skin General skin exam: no rashes or lesions noted Neuro General: patient alert, patient awake and patient oriented x3 Objective Last Vital Signs Temp 98.2 F 05/06/21 12:08 Pulse 77 05/06/21 12:08 Resp 20 05/06/21 12:08 BP 104/45 L 05/06/21 12:08 Pulse Ox 94 05/06/21 12:08 Laboratory Results - last 24 hr 05/05/21 05/05/21 05/06/21 09:34 16:13 02:30 WBC RBC Hgb 7.5 L Hct 23.2 L MCV MCH MCHC RDW Plt Count MPV Immature Gran % Neutrophils % Lymphocytes % Monocytes % Eosinophils % Basophils % Nucleated RBC % Absolute Neutrophils Absolute Lymphocytes Absolute Monocytes Absolute Eosinophils Absolute Basophils RBC Morphology Macrocytosis Sodium Potassium Chloride Carbon Dioxide Anion Gap BUN Creatinine Estimated GFR/1.73 m2 Glucose Calcium Magnesium Troponin I < 0.05 Patient ABO/Rh O Positive Antibody Screen NEGATIVE Crossmatch See Detail 05/06/21 05/06/21 05/06/21 02:30 06:25 06:25 WBC 5.86 D RBC 2.34 L Hgb 7.7 L 7.7 L Hct 24.0 L 24.0 L MCV 102.6 H MCH 32.9 MCHC 32.1 RDW 14.7 H Plt Count 121 L MPV 12.6 H Immature Gran % 0.3 Neutrophils % 64.3 Lymphocytes % 25.9 Monocytes % 5.6 Eosinophils % 3.4 Basophils % 0.5 Nucleated RBC % 0 Absolute Neutrophils 3.77 Absolute Lymphocytes 1.52 Absolute Monocytes 0.33 Absolute Eosinophils 0.20 Absolute Basophils 0.03 RBC Morphology See Below Macrocytosis 1+ Sodium 145 Potassium 3.9 Chloride 113 H Carbon Dioxide 28.3 Anion Gap 3.7 BUN 31 H D Creatinine 1.0 Estimated GFR/1.73 m2 >= 60.00 Glucose 92 D Calcium 7.6 L Magnesium 1.9 Troponin I Patient ABO/Rh Antibody Screen Crossmatch 05/06/21 06:25 WBC RBC Hgb Hct MCV MCH MCHC RDW Plt Count MPV Immature Gran % Neutrophils % Lymphocytes % Monocytes % Eosinophils % Basophils % Nucleated RBC % Absolute Neutrophils Absolute Lymphocytes Absolute Monocytes Absolute Eosinophils Absolute Basophils RBC Morphology Macrocytosis Sodium Potassium Chloride Carbon Dioxide Anion Gap BUN Creatinine Estimated GFR/1.73 m2 Glucose Calcium Magnesium Troponin I Patient ABO/Rh O Positive Antibody Screen NEGATIVE Crossmatch See Detail
--- NOTE | 2021-05-06 13:09 | W.PULMCC ---
General Date of Service Date of service: 05/06/21 Time of Service: 08:00 Reason for Admission to ICU: Upper GI bleeding Assessment and Plan Assessment and plan (1) Acute upper GI bleeding: Status: Acute (2) GERD (gastroesophageal reflux disease): Status: Chronic Qualifiers: Esophagitis presence: esophagitis presence not specified Qualified Code(s): K21.9 - Gastro-esophageal reflux disease without esophagitis (3) Anemia due to acute blood loss: Status: Acute (4) Syncope: Status: Chronic Assessment and plan: This is a 76-year-old gentleman who was admitted to the ICU for upper GI bleed in the setting of taking aspirin as well as Naprosyn. He has not had any further visible bleeding overnight however did not have an appropriate response to transfusion given and so was being transfused 1 more unit. He is planned for EGD today. Qualifiers: Syncope type: unspecified Qualified Code(s): R55 - Syncope and collapse Recommendations Pulmonary: Lung infiltrate - does not appear consistent with aspiration - would recommend CT scan in 2 months time to ensure resolution - Incentive spirometry Cardiac: No acute concerns Renal: No acute concerns I&O: Intake & Output 05/03/21 05/04/21 05/05/21 05/06/21 23:59 23:59 23:59 23:59 Intake Total 1370.833 / 3916.027 3338.500 / 1746.500 Output Total 1350 / 1350 900 / 900 Balance 20.833 / 20.833 846.500 / 846.500 Weight 63.9 kg 64.4 kg Daily Fluid Goal:: Even to positive GI Nutrition: Upper GIB - EGD today with surgery - Protonix 40 mg IV bid - has been started on sucralfate - LR at 125cc/hr until after EGD - once EGD completed recommend stopping IVF - await EGD results for determination of PO intake ability Date of Last Bowel Movement: 05/05/21 Infectious Disease: No acute concerns Hematologic: Blood loss anemia - goal 7.0 - transfuse if below - H/H q8 hrs Neurologic: No acute concerns Endocrine: No acute concerns Lines: PIV Prophylaxis: No DVT ppx given blood loss - TEDs/SCDs on Protonix Code Status: Resuscitation Status Full Code Subjective Critical and life-threatening events over the past 24 hours: This is a 76-year-old gentleman who has a history of GERD, IBS and chronic back pain on Naprosyn and who also is on chronic doxycycline for gingival issues. He does also take a baby aspirin daily. He reports that 2 days ago he noticed black stools as well as hematemesis in addition to abdominal pain. He was found to have a hemoglobin of 9.2 and was started on a Protonix infusion. The surgical service saw the patient for coordination of EGD which is occurring today. My assessment of the patient he is doing quite well. Is not having nausea or vomiting and has a nonpainful abdomen at the moment. He also denies any tarry stools overnight. Exam Const General: no acute distress Nutritional Appearance: well nourished HENMT Head: normocephalic Ears: external ears normal and no periauricular adenopathy General nose exam: nasal mucous membranes and turbinates normal Face and sinus: sinuses nontender Mouth: oropharynx normal and moist mucous membranes Teeth and gingiva: dentition normal Eyes General: appearance normal, both eyes and all related structures Pupils: PERRL Neck Neck: normal visual inspection and no lymphadenopathy Chest Chest: normal inspection of the chest Resp Effort & Inspection: normal respiratory effort Auscultation: clear to auscultation bilaterally, no rales, no rhonchi and no wheezes Cardio Rate: regular rate Rhythm: regular rhythm Heart Sounds: S1 normal, S2 normal and no murmurs Pulses: radial pulses present bilaterally GI Inspection: normal to inspection Palpation: soft Skin General skin exam: no rashes or lesions noted Neuro General: patient alert, patient awake and patient oriented x3 Extrem General: no clubbing, cyanosis or edema Psych Mental Status: mental status grossly normal Affect: normal affect Attitude: cooperative Most Recent VS/Results Last Vital Signs Temp 36.8 C 05/06/21 12:08 Pulse 77 05/06/21 12:08 Resp 20 05/06/21 12:08 BP 104/45 L 05/06/21 12:08 Pulse Ox 94 05/06/21 12:08 Laboratory Results - last 24 hr 05/05/21 05/05/21 05/06/21 09:34 16:13 02:30 WBC RBC Hgb 7.5 L Hct 23.2 L MCV MCH MCHC RDW Plt Count MPV Immature Gran % Neutrophils % Lymphocytes % Monocytes % Eosinophils % Basophils % Nucleated RBC % Absolute Neutrophils Absolute Lymphocytes Absolute Monocytes Absolute Eosinophils Absolute Basophils RBC Morphology Macrocytosis Sodium Potassium Chloride Carbon Dioxide Anion Gap BUN Creatinine Estimated GFR/1.73 m2 Glucose Calcium Magnesium Troponin I < 0.05 Patient ABO/Rh O Positive Antibody Screen NEGATIVE Crossmatch See Detail 05/06/21 05/06/21 05/06/21 02:30 06:25 06:25 WBC 5.86 D RBC 2.34 L Hgb 7.7 L 7.7 L Hct 24.0 L 24.0 L MCV 102.6 H MCH 32.9 MCHC 32.1 RDW 14.7 H Plt Count 121 L MPV 12.6 H Immature Gran % 0.3 Neutrophils % 64.3 Lymphocytes % 25.9 Monocytes % 5.6 Eosinophils % 3.4 Basophils % 0.5 Nucleated RBC % 0 Absolute Neutrophils 3.77 Absolute Lymphocytes 1.52 Absolute Monocytes 0.33 Absolute Eosinophils 0.20 Absolute Basophils 0.03 RBC Morphology See Below Macrocytosis 1+ Sodium 145 Potassium 3.9 Chloride 113 H Carbon Dioxide 28.3 Anion Gap 3.7 BUN 31 H D Creatinine 1.0 Estimated GFR/1.73 m2 >= 60.00 Glucose 92 D Calcium 7.6 L Magnesium 1.9 Troponin I Patient ABO/Rh Antibody Screen Crossmatch 05/06/21 06:25 WBC RBC Hgb Hct MCV MCH MCHC RDW Plt Count MPV Immature Gran % Neutrophils % Lymphocytes % Monocytes % Eosinophils % Basophils % Nucleated RBC % Absolute Neutrophils Absolute Lymphocytes Absolute Monocytes Absolute Eosinophils Absolute Basophils RBC Morphology Macrocytosis Sodium Potassium Chloride Carbon Dioxide Anion Gap BUN Creatinine Estimated GFR/1.73 m2 Glucose Calcium Magnesium Troponin I Patient ABO/Rh O Positive Antibody Screen NEGATIVE Crossmatch See Detail Review of Systems All systems reviewed & are unremarkable except as noted in HPI and below Time spent with patient Time spent in Critical Care: 40 Time spent in Critical care included: Coordination of care, Chart review, Documenting critically ill care, Time at immediate bedside and Discussing critically ill care with other medical staff
[2021-05-06] MEDS: Lactated Ringers 1,000 ML 100 ML IV (18:13)
[2021-05-06 18:17] LABS: HCT 27.4 % (40.0-50.0); HGB 9.1 g/dL (13.5-17.5)
[2021-05-06] MEDS: Normal Saline Flush 10 ML SYR IVP (19:56)
[2021-05-07] VITALS (19 sets, daily range): BP systolic 111–133; BP diastolic 62–71; PULSE 58–87; RESP 12–37; TEMP 36.9–37.3; O2SAT 92–98
[2021-05-07] MEDS: Lactated Ringers 1,000 ML 100 ML IV (04:00)
[2021-05-07 07:22] LABS: HCT 27.1 % (40.0-50.0); HGB 8.9 g/dL (13.5-17.5); MCH 32.1 pg (27.0-33.0); MCHC 32.8 % (32.0-36.0); MCV 97.8 fL (80-95); MPV 12.8 fL (8.0-11.0); Platelet Count 125 10^3/uL (130-400); RBC 2.77 10^6/uL (4.36-5.78); RDW 14.6 % (11.8-14.1); WBC 6.16 10^3/uL (4.4-10.8)
[2021-05-07 07:44] LABS: ALT 18 U/L (16-63); AST 25 U/L (15-37); Albumin 2.8 g/dL (3.4-5.0); Alkaline Phosphatase 41 U/L (46-116); Anion Gap 4.6 mmol/L (3-11); BUN 14 mg/dL (7-18); Bilirubin, Total 1.1 mg/dL (0.2-1.0); CO2 30.4 mmol/L (21.0-32.0); CREATININE 0.9 mg/dL (0.70-1.30); Calcium 8.1 mg/dL (8.5-10.1); Chloride 107 mmol/L (98-107); Glucose 92 mg/dL (74-106); Potassium 3.8 mmol/L (3.5-5.1); Sodium 142 mmol/L (136-145); Total Protein 5.1 g/dL (6.4-8.2)
[2021-05-07] MEDS: Sucralfate 1 GM TAB PO ×4 (07:56→21:58)
[2021-05-07] MEDS: Pantoprazole 40 MG VIAL IVP (07:56)
--- NOTE | 2021-05-07 09:11 | W.PM.PROGNOT ---
Date of Service Date of service: 05/07/21 Time of Service: 09:11 Assessment and Plan Assessment and plan (1) Esophageal ulcer with bleeding: Status: Acute Assessment and plan: POD#1 s/p EGD -Esophageal ulcer, Gastritis and Duodenitis seen -Has colonoscopy scheduled at [facility] in [place] -AM Hb stable -Continue PPI BID and Carafate as an outpatient -Avoid NSAIDS/ASA/Caffeine (2) Anemia due to acute blood loss: Status: Acute (3) Upper GI bleeding: Status: Acute Assessment and plan: -Resolved (4) Lung infiltrate: Status: Acute Subjective Subjective Patient reports: no new complaints and feels better; denies nausea and vomiting Exam Const General: cooperative, healthy appearing, comfortable and no acute distress Resp Effort & Inspection: normal respiratory effort, no audible wheezes and no respiratory distress Cardio Rate: regular rate Rhythm: regular rhythm GI Inspection: normal to inspection and non-distended Palpation: soft, no guarding and nontender Neuro General: patient alert, patient awake and patient oriented x3 Objective Last Vital Signs Temp 98.4 F 05/07/21 07:56 Pulse 78 05/07/21 07:42 Resp 18 05/07/21 07:42 BP 111/71 05/07/21 07:42 Pulse Ox 98 05/07/21 07:42 Laboratory Results - last 24 hr 05/05/21 05/06/21 05/06/21 09:34 06:25 17:57 WBC RBC Hgb 9.1 L Hct 27.4 L MCV MCH MCHC RDW Plt Count MPV Sodium Potassium Chloride Carbon Dioxide Anion Gap BUN Creatinine Estimated GFR/1.73 m2 Glucose Calcium Total Bilirubin AST ALT Alkaline Phosphatase Total Protein Albumin Patient ABO/Rh O Positive Antibody Screen NEGATIVE Crossmatch See Detail See Detail 05/07/21 05/07/21 06:35 06:35 WBC 6.16 RBC 2.77 L Hgb 8.9 L Hct 27.1 L MCV 97.8 H MCH 32.1 MCHC 32.8 RDW 14.6 H Plt Count 125 L MPV 12.8 H Sodium 142 Potassium 3.8 Chloride 107 Carbon Dioxide 30.4 Anion Gap 4.6 BUN 14 D Creatinine 0.9 Estimated GFR/1.73 m2 >= 60.00 Glucose 92 Calcium 8.1 L Total Bilirubin 1.1 H AST 25 ALT 18 Alkaline Phosphatase 41 L Total Protein 5.1 L Albumin 2.8 L Patient ABO/Rh Antibody Screen Crossmatch
[2021-05-07 09:20] LABS: Iron 92 ug/dL (65-175); Total Iron Binding Capacity 229 ug/dL (250-450); Transferrin Sat 40 % (20-55)
[2021-05-07 09:55] LABS: Ferritin 276 ng/mL (26-388)
--- NOTE | 2021-05-07 12:43 | PGE_ITS ---
Date of Service Date of service: 05/07/21 Time of Service: 12:43 Assessment and Plan Assessment and plan (1) Upper GI bleeding: Status: Acute Assessment and plan: Due to esophageal ulcer/esophagitis, gastritis, duodenitis Switched to protonix boluses. Started on carafate - agree with both. I suspect this is due to the unfortunate combination of the patient's medications: naprosyn, aspirin, SSRI's effect on platelets, and doxycycline's tendency to cause esophagitis/gastritis. Status post transfusion of 2 units of packed red cells with stable hemoglobin. Transfer to the medical/surgical floor recheck CBC in the morning. If he remains stable overnight then plan for discharge in the morning. (2) Anemia due to acute blood loss: Status: Acute Assessment and plan: Status post transfusion 2 units of packed red cells. I will give him parenteral iron supplementation. (3) Syncope: Status: Chronic Assessment and plan: in setting of acute anemia/GI bleeding. Suspect this is due to symptomatic anemia. No further symptoms of syncope or near syncope. Heart rate and rhythm been stable we will discontinue telemetry and transfer to the medical/surgical floor. Qualifiers: Syncope type: unspecified Qualified Code(s): R55 - Syncope and collapse (4) Lung infiltrate: Status: Acute Assessment and plan: Possible aspiration pneumonitis. The patient does not have a cough or sx of pneumonia. Will monitor. Should he develop sx, would treat with abx. (5) GERD (gastroesophageal reflux disease): Status: Chronic Assessment and plan: The patient should be on PPI and probably abstain from doxycycline in the future. He should remain on Carafate indefinitely Qualifiers: Esophagitis presence: esophagitis presence not specified Qualified Code(s): K21.9 - Gastro-esophageal reflux disease without esophagitis (6) DVT prophylaxis: Status: Acute Assessment and plan: SCDs (7) Discharge planning issues: Status: Acute Assessment and plan: Full code Transfer to medical/surgical floor. Remained stable discharge in the morning. Subjective Subjective Interval history since last seen: Patient feels much better no lightheadedness or dizziness. He does feel little fatigue but no dyspnea or chest discomfort. He has had no hematemesis and no hematochezia or melena. His nurse reports he is actually had no stools. Hemoglobin is 8.9 g. He had been 9.1 g yesterday after 2 units of packed red cells. EGD demonstrated hiatal hernia along with esophagitis and esophageal ulcer and gastritis and duodenitis. Is currently on Carafate and Protonix. I have changed the Protonix from IV to p.o. We have adv anced his diet and discontinued his IV fluids. Transfer him out to the medical/surgical floor and watch him for 1 more day to make sure he has no rebleed and if his hemoglobin hematocrit main stable he will be discharged home in the morning. Exam Narrative Exam Narrative: Elderly male who appears to be pale he is alert and oriented person place time circumstance. He standing up the bedside talking with his on his cell phone. Lungs are clear to auscultation Heart regular rate and rhythm Abdomen soft nondistended nontender normal bowel sounds. Extremities without edema Neuro exam grossly intact he is alert and oriented person place time circumstance. Objective Last Vital Signs Temp 36.9 C 05/07/21 07:56 Pulse 78 05/07/21 07:42 Resp 18 05/07/21 07:42 BP 111/71 05/07/21 07:42 Pulse Ox 98 05/07/21 07:42 Laboratory Results - last 24 hr 05/05/21 05/06/21 05/06/21 09:34 06:25 17:57 WBC RBC Hgb 9.1 L Hct 27.4 L MCV MCH MCHC RDW Plt Count MPV Sodium Potassium Chloride Carbon Dioxide Anion Gap BUN Creatinine Estimated GFR/1.73 m2 Glucose Calcium Iron TIBC Transferrin % Sat Ferritin Total Bilirubin AST ALT Alkaline Phosphatase Total Protein Albumin Patient ABO/Rh O Positive Antibody Screen NEGATIVE Crossmatch See Detail See Detail 05/07/21 05/07/21 05/07/21 06:35 06:35 06:35 WBC 6.16 RBC 2.77 L Hgb 8.9 L Hct 27.1 L MCV 97.8 H MCH 32.1 MCHC 32.8 RDW 14.6 H Plt Count 125 L MPV 12.8 H Sodium 142 Potassium 3.8 Chloride 107 Carbon Dioxide 30.4 Anion Gap 4.6 BUN 14 D Creatinine 0.9 Estimated GFR/1.73 m2 >= 60.00 Glucose 92 Calcium 8.1 L Iron 92 TIBC 229 L Transferrin % Sat 40 Ferritin Total Bilirubin 1.1 H AST 25 ALT 18 Alkaline Phosphatase 41 L Total Protein 5.1 L Albumin 2.8 L Patient ABO/Rh Antibody Screen Crossmatch 05/07/21 06:35 WBC RBC Hgb Hct MCV MCH MCHC RDW Plt Count MPV Sodium Potassium Chloride Carbon Dioxide Anion Gap BUN Creatinine Estimated GFR/1.73 m2 Glucose Calcium Iron TIBC Transferrin % Sat Ferritin 276 Total Bilirubin AST ALT Alkaline Phosphatase Total Protein Albumin Patient ABO/Rh Antibody Screen Crossmatch
--- NOTE | 2021-05-07 13:39 | NUR.NOTE ---
RN calls pharmacy to request Venofer be delivered. Said medication is being mixed.Nursing Note:
[2021-05-07] MEDS: IRON SUCROSE COMPLEX 200 MG in Normal Saline 100 ML 400 MG IVPB (14:09)
[2021-05-07] MEDS: Normal Saline Flush 10 ML SYR IVP ×3 (14:26→21:58)
[2021-05-07] MEDS: Pantoprazole 40 MG TABCR PO (19:49)
[2021-05-08] VITALS (12 sets, daily range): BP systolic 92–136; BP diastolic 52–74; PULSE 58–160; RESP 12–18; TEMP 36.3–37.1; O2SAT 96–97
[2021-05-08 07:15] LABS: Abs Immature Grans 0.02 10^3/uL (0.0-0.06); Absolute Basophil Count 0.04 10^3/uL (0.0-0.2); Absolute Eosinophil Count 0.27 10^3/uL (0.0-0.7); Absolute Lymphocyte Count 1.46 10^3/uL (1.2-3.4); Absolute Monocyte Count 0.47 10^3/uL (0.1-0.8); Absolute Neutrophil Count 3.45 10^3/uL (1.2-6.7); Basophils % 0.7; Eosinophils % 4.7; HCT 26.7 % (40.0-50.0); Immature Grans % 0.4; Lymphocytes % 25.6; MCH 32.7 pg (27.0-33.0); MCHC 33.7 % (32.0-36.0); MCV 97.1 fL (80-95); MPV 12.8 fL (8.0-11.0); Monocytes % 8.2; Neutrophils % 60.4; Nucleated RBC 0 %; Platelet Count 139 10^3/uL (130-400); RBC 2.75 10^6/uL (4.36-5.78); RDW 14.4 % (11.8-14.1); RDW-SD 50.3 fL; WBC 5.71 10^3/uL (4.4-10.8)
[2021-05-08 07:30] LABS: Anion Gap 4.7 mmol/L (3-11); BUN 10 mg/dL (7-18); CO2 31.3 mmol/L (21.0-32.0); CREATININE 0.9 mg/dL (0.70-1.30); Calcium 8.2 mg/dL (8.5-10.1); Chloride 108 mmol/L (98-107); Glucose 97 mg/dL (74-106); Potassium 3.6 mmol/L (3.5-5.1); Sodium 144 mmol/L (136-145)
--- NOTE | 2021-05-08 08:00 | RT.EKG_ITS ---
APPROVED REPORT Exam: Resting ECG Reason for Exam: VT Patient Location: I HR:69 bpm ECG Measurements Heart Rate 69 AXIS FL 178 P 67 QRSd 108 QRS 2 QT 427 T [id number] QTc 458 Conclusion Sinus rhythm...normal P axis, V-rate 60- 99 Nonspecific T abnormalities, diffuse leads...T <-0.10mV, ant/lat/inf
[2021-05-08] MEDS: Sucralfate 1 GM TAB PO ×4 (08:04→22:16)
[2021-05-08] MEDS: Pantoprazole 40 MG TABCR PO ×2 (08:04→20:26)
[2021-05-08 08:15] LABS: Magnesium 1.9 mg/dL (1.8-2.4)
[2021-05-08 08:23] LABS: Troponin I < 0.05 ng/mL (<0.06)
[2021-05-08 09:09] LABS: NT-proBNP 3041 pg/mL (<300); TSH (W/Ref FT4) 2.86 uIU/mL (0.36-3.74)
--- NOTE | 2021-05-08 09:31 | W.PM.PROGNOT ---
Date of Service Date of service: 05/08/21 Time of Service: 09:33 Assessment and Plan Assessment and plan (1) Upper GI bleeding: Status: Acute Assessment and plan: Due to esophageal ulcer/esophagitis, gastritis, duodenitis Secondary to chronic use of NSAIDs and aspirin and doxycycline. Continue Carafate and twice a day Protonix. No evidence of further GI bleeding. Hemoglobin is stable at 9 g. (2) Anemia due to acute blood loss: Status: Acute Assessment and plan: Status post transfusion 2 units of packed red cells. I will give him parenteral iron supplementation. (3) Syncope: Status: Chronic Assessment and plan: Initially felt to be due to his acute GI bleeding however this also may been exacerbated by cardiac arrhythmias as the patient has had frequent ventricular ectopy including PVCs triplets and couplets as well as brief runs of ventricular tachycardia. We will cycle his troponin levels and get an echocardiogram in the morning to evaluate his LV and RV function and requested cardiology consultation. Patient is asymptomatic for any chest pain or pressure. Does have some mild fluid overload secondary to recent transfusions. I will diurese him gently with low-dose furosemide today. We will supplement his potassium. Qualifiers: Syncope type: unspecified Qualified Code(s): R55 - Syncope and collapse (4) Lung infiltrate: Status: Acute Assessment and plan: Possible aspiration pneumonitis. The patient does not have a cough or sx of pneumonia. Will monitor. Should he develop sx, would treat with abx. We will follow up with a repeat chest x-ray (5) GERD (gastroesophageal reflux disease): Status: Chronic Assessment and plan: The patient should be on PPI and probably abstain from doxycycline in the future. He should remain on Carafate indefinitely Qualifiers: Esophagitis presence: esophagitis presence not specified Qualified Code(s): K21.9 - Gastro-esophageal reflux disease without esophagitis (6) DVT prophylaxis: Status: Acute Assessment and plan: SCDs not a candidate for anticoagulation in light of his recent GI bleed (7) Discharge planning issues: Status: Acute Assessment and plan: Full code Requires continued hospitalization in light of recent nonsustained V. tach Subjective Subjective Interval history since last seen: Mr. Bailey has had frequent ventricular ectopy including PVC's, ventricular bigeminy and trigeminy and this morning had an asymptomatic 15 beat run of VT at 160 bpm. He denies any chest pain or pressure. EKG demonstrates nonspecific ST changes but no acute injury pattern. Exam Narrative Exam Narrative: Elderly male sitting up in bed alert and oriented person place time circumstance in no acute distress. Lungs with bibasilar rales no wheezes or rhonchi Heart regular rate and rhythm without appreciable murmur rub or gallop. Abdomen soft nontender nondistended. Extremities without peripheral cyanosis or edema. Objective Last Vital Signs Temp 37.1 C 05/08/21 07:56 Pulse 60 05/08/21 07:56 Resp 16 05/08/21 07:56 BP 136/73 05/08/21 07:56 Pulse Ox 97 05/08/21 07:56 Laboratory Results - last 24 hr 05/07/21 05/08/21 05/08/21 06:35 06:20 06:20 WBC 5.71 RBC 2.75 L Hgb 9.0 L Hct 26.7 L MCV 97.1 H MCH 32.7 MCHC 33.7 RDW 14.4 H Plt Count 139 MPV 12.8 H Immature Gran % 0.4 Neutrophils % 60.4 Lymphocytes % 25.6 Monocytes % 8.2 Eosinophils % 4.7 Basophils % 0.7 Nucleated RBC % 0 Absolute Neutrophils 3.45 Absolute Lymphocytes 1.46 Absolute Monocytes 0.47 Absolute Eosinophils 0.27 Absolute Basophils 0.04 Sodium 144 Potassium 3.6 Chloride 108 H Carbon Dioxide 31.3 Anion Gap 4.7 BUN 10 Creatinine 0.9 Estimated GFR/1.73 m2 >= 60.00 Glucose 97 Calcium 8.2 L Magnesium Ferritin 276 Troponin I NT-Pro-B Natriuret Pep 3041 H TSH 2.86 05/08/21 05/08/21 06:20 06:20 WBC RBC Hgb Hct MCV MCH MCHC RDW Plt Count MPV Immature Gran % Neutrophils % Lymphocytes % Monocytes % Eosinophils % Basophils % Nucleated RBC % Absolute Neutrophils Absolute Lymphocytes Absolute Monocytes Absolute Eosinophils Absolute Basophils Sodium Potassium Chloride Carbon Dioxide Anion Gap BUN Creatinine Estimated GFR/1.73 m2 Glucose Calcium Magnesium 1.9 Ferritin Troponin I < 0.05 NT-Pro-B Natriuret Pep TSH
[2021-05-08] MEDS: Potassium Chloride Liquid 20 MEQ PKT PO ×2 (11:12→20:26)
[2021-05-08] MEDS: Furosemide 20 MG/2 ML VIAL IVP (11:12)
[2021-05-08] MEDS: Normal Saline Flush 10 ML SYR IVP ×2 (11:13→20:35)
[2021-05-08 11:22] LABS: Troponin I < 0.05 ng/mL (<0.06)
[2021-05-08] MEDS: IRON SUCROSE COMPLEX 200 MG in Normal Saline 100 ML 400 MG IVPB (12:22)
[2021-05-08] MEDS: Diclofenac 1% Gel 100 GM TUBE TP ×3 (12:22→20:26)
[2021-05-08] MEDS: Normal Saline 500 ML 30 ML IV (12:23)
[2021-05-09] VITALS (7 sets, daily range): BP systolic 109–133; BP diastolic 66–75; PULSE 60–97; RESP 17–18; TEMP 36.1–36.8; O2SAT 96–99
[2021-05-09 07:19] LABS: Anion Gap 5.5 mmol/L (3-11); BUN 16 mg/dL (7-18); CO2 29.5 mmol/L (21.0-32.0); Calcium 8.4 mg/dL (8.5-10.1); Chloride 108 mmol/L (98-107); Glucose 102 mg/dL (74-106); Potassium 3.7 mmol/L (3.5-5.1); Sodium 143 mmol/L (136-145)
--- NOTE | 2021-05-09 08:00 | DI.US_ITS ---
APPROVED REPORT EXAM: Comprehensive 2D, Doppler, and color-flow Echocardiogram Patient Location: In-Patient Room/Bed: [address] Service Station Equipment Mechanic: Claudia Villanueva RDCS (AE) Indications: Evaluate LV function, VT Other Information Study Quality: Fair. Technically limited study due to body habitus, inability to position patient. Conclusion Normal left ventricular wall thickness. The LV chamber is borderline dilated. Estimated ejection fr action is 40 to 45% with global hypokinesis Normal right ventricular size and systolic function Both atria are normal in size Aortic valve is trileaflet and mildly sclerotic without stenosis or regurgitation Mildly thickened mitral leaflets. Trace to mild mitral regurgitation Normal tricuspid valve with trace regurgitation The pulmonic valve was not well visualized Wall motion Left Ventricle Left ventricle is borderline dilated. Left ventricular systolic function is mildly decreased. There i s normal left ventricular wall thickness. There is global hypokinesis of the left ventricle. There is no ventricular septal defect visualized. LVEF is 40-45%. Right Ventricle The right ventricle is normal size. The right ventricular systolic function is normal. Atria The left atrium size is normal. The right atrium size is normal. The interatrial septum is intact wit h no evidence for an atrial septal defect. Aortic Valve The aortic valve i is mildly sclerotic Aortic valve is trileaflet. There is no aortic valvular stenos is. No aortic regurgitation is present. Mitral Valve Mitral valve leaflets are mildly thickened. No evidence of mitral valve stenosis. Trace to mild ed l regurgitation. Tricuspid Valve The tricuspid valve is normal in structure. There is no tricuspid valve stenosis. Trace tricuspid reg urgitation. Unable to assess PA pressure. Pulmonic Valve Pulmonic valve is not well visualized. There is no pulmonic valvular stenosis. There is no pulmonic v alvular regurgitation. Great Vessels The aortic root is normal in size. Ascending aorta is not well visualized. Aortic arch is not well vi sualized. IVC is normal in size and collapses >50% with inspiration. Pericardium There is no pericardial effusion. 2D Dimensions IVSD d PLAX 1.11 cm M: 0.6-1.2 LV Vol A2C d MOD 112.8 mL LVPW d PLAX 1.10 cm M: 0.6 - 1.2 LV Vol A4C d MOD 152.2 mL LVID d PLAX 5.78 cm M: 4.2 - 5.8 LV EF A4C MOD 45.8 % LVDs 4.50 cm M: 2.5 - 4.0 LV EF A2C MOD 45.9 % Ao Root d 3.04 cm M: 3.1 - 3.7 LV EF Biplane MOD 47.0 % RA Area A4C 17.74 cm2 SV 64.19 mL RA Vol/ BSA A4C s A-L 29.5 mL/m2 SV Index 35.87 mL/m2 LV EF Teichholz 43.0 % LVEF (Lua's) 46.99 % M: 52 - 72 LV Volume 106.47 mL M: 62 - 150 LV Volume Index 59.48 mL/m2 M: 34 - 74 LV Vol Biplane MOD 136.6 mL FS 21.50 % LV Diastology MV E' medial 0.095 (>0.07 m/s) E/A Ratio 0.9 LV E/e MED 6.40 (<14) MV E Vmax 0.61 (0.4-1.3 m/s) MV E' lateral 0.095 (>0.1 m/s) MV A Vmax 0.65 (0.4-1.3 m/s) LV E/e LAT 6.40 (<14) MV E/A Ratio 0.92 MV E/E' medial 6.41 MV E/E' lateral 6.41 Aortic Valve LVOT Area 3.02 cm2 AoV Area Vmax 2.17 cm2 LVOT Vmax 1.04 m/s AoV Area/ BSA (Vmax) 1.21 cm2/m2 LVOT Mean Sebastián. 0.69 m/s ROHAN Mean Sebastián. 1.92 cm2 LVOT Peak Grad 4.3 mmHg ROHAN Mean Sebastián. Index 1.08 cm2/m2 LVOT Mean Grad 2.2 mmHg LVOT VTI 0.187 m LVOT Diam s 1.95 cm AoV Vmax 1.45 m/s Velocity Ratio 0.71 AoV Mean Sebastián. 1.07 m/s AoV Peak Grad 8.4 mmHg LVOT SV 56.50 mL AoV Mean Grad 5.0 mmHg AoV VTI 0.276 m AoV Area VTI 2.05 cm2 AoV Area/ BSA (VTI) 1.14 cm/m2 Mitral Valve MV DT 215 (160-240 msec) MV PHT 62 msec MV Area PHT 3.52 cm2 MV VTI 0.274 m MV Area VTI 2.06 (4.0-6.0 cm2) Pulmonary Valve PV Vmax 1.08 (0.5-1.5 m/s) RVOT Peak Gr. 1.28 mmHg PV Peak Grad 4.6 mmHg RVOT Mean Gr. 0.70 mmHg PV Mean Grad 2.9 mmHg RVOT VTI 0.128 m PV VTI 0.211 m RVOT Vmax 0.57 m/s
[2021-05-09] MEDS: Potassium Chloride Liquid 20 MEQ PKT PO ×2 (08:31→20:49)
[2021-05-09] MEDS: Sucralfate 1 GM TAB PO ×4 (08:31→22:34)
[2021-05-09] MEDS: Pantoprazole 40 MG TABCR PO ×2 (08:31→20:47)
[2021-05-09] MEDS: Normal Saline Flush 10 ML SYR IVP ×4 (08:41→20:50)
[2021-05-09] MEDS: Diclofenac 1% Gel 100 GM TUBE TP ×4 (08:42→21:01)
--- NOTE | 2021-05-09 08:45 | W.CARDCONSUL ---
Date of service: 05/09/21 Time of Service: 08:45 Assessment and Plan Assessment and plan (1) Ventricular dysrhythmia: Status: Acute (2) Upper GI bleeding: Status: Acute (3) Syncope: Status: Chronic Assessment and plan: Patient presented with significant upper GI bleeding due to inflammation of the esophagus stomach and duodenum. In the setting of his acute presentation he sustained near syncope and syncope. At this point I would be willing to believe that that was on the basis of his acute blood loss. He does however have evidence of ventricular dysrhythmias, which are asymptomatic. He should have an echocardiogram to assess left-ventricular function. His electrolytes have been checked already and are unremarkable. There is no evidence of acute myocardial infarction. Treatment with a low-dose beta-delia such as metoprolol succinate 25 mg once daily would be reasonable. He should have an ischemic evaluation; I would recommend a exercise myocardial perfusion imaging. If necessary this could be scheduled as an outpatient Thank you for the opportunity to participate in the patient's care Qualifiers: Syncope type: unspecified Qualified Code(s): R55 - Syncope and collapse History of Present Illness History of Present Illness Chief Complaint: Melena, vomiting blood, syncope Narrative: This is a 76-year-old man who was in the hospital several days ago. He reportedly developed black stools which went on for about 2 days. He was weak and had fatigue and near syncopal episode the day prior to admission. Subsequently he says he vomited blood and did sustain a syncopal episode. Because of the symptoms he presented to the emergency room. He was found to be mildly anemic. There was evidence of GI bleeding. He was transfused a total of 2 units of packed cells and has had an EGD. This disclosed an esophageal ulcer, gastritis, esophagitis, and duodenitis. All this was attributed to aspirin and nonsteroidal anti-inflammatory medication use prior to admission. He was additionally taking doxycycline which may have been contributory While being monitored in the hospital patient was noted to have moderately frequent ventricular ectopic beats couplets triplets and several runs of nonsustained ventricular tachycardia all of which were asymptomatic. This prompted cardiac evaluation Patient denies any past history of cardiac illness. He does have a strong family history of atherosclerotic cardiovascular disease and on that basis about 20 years ago he had a stress test. He reports that this was felt to be normal and it was never repeated. Risk factors include prior tobacco use. He is not known to be diabetic or to have significant dyslipidemia He reports that in general he is active, though he does not do really strenuous activity. He feels that when he starts to get tired or a little short of breath he will just stop and rest because he has all day to complete whatever he is doing. He does not describe chest pain palpitations , dizziness or syncope other than related to his acute presentation EKG shows nondiagnostic ST-T abnormalities Consults Consult date: 05/09/21 Requesting physician: Luciano Dong Review of Systems Cardiovascular Cardiovascular: Reports as per [facility] Medical History (Updated 05/09/21 @ 08:51 by Ayla Locke MD) Arthritis Chronic back pain GERD (gastroesophageal reflux disease) H/O prostate cancer IBS (irritable bowel syndrome) Ventricular dysrhythmia Surgical History History of radical prostatectomy S/P colonoscopy Family History Father Heart disease Son Heart disease Brother Heart disease Hypertension Paternal Grandfather Stroke aneurysm Social History Smoking/Tobacco Use Status: Former Tobacco Use Smoking risk assessment performed?: Yes Alcohol Intake: former Substance use type: does not use Do you feel safe at home: Yes Do you feel safe in your relationship?: Yes Exam Const Other: Well-developed well-nourished pleasant appears stated age no acute distress Neck Other: No neck vein distention normal carotid upstrokes no bruits heard Resp Effort & Inspection: normal respiratory effort Auscultation: clear to auscultation bilaterally Cardio Jugular venous pressure: no JVD Palpation: normal PMI Rate: regular rate Rhythm: regular rhythm Heart Sounds: S1 normal, S2 normal, no gallops and no murmurs Pulses: posterior tibial pulses present Extrem Other: No peripheral edema Results Last Vital Signs Temp 36.8 C 05/09/21 08:36 Pulse 73 05/09/21 08:36 Resp 17 05/09/21 08:36 BP 122/75 05/09/21 08:36 Pulse Ox 97 05/09/21 08:36 Labs Result diagrams: 05/08/21 06:20 05/09/21 06:30 Labs: Laboratory Results - last 24 hr 05/08/21 05/08/21 05/09/21 06:20 11:00 06:30 Sodium 144 143 Potassium 3.6 3.7 Chloride 108 H 108 H Carbon Dioxide 31.3 29.5 Anion Gap 4.7 5.5 BUN 10 16 D Creatinine 0.9 1.0 Estimated GFR/1.73 m2 >= 60.00 >= 60.00 Glucose 97 102 Calcium 8.2 L 8.4 L Troponin I < 0.05 NT-Pro-B Natriuret Pep 3041 H TSH 2.86
--- NOTE | 2021-05-09 09:31 | CMPROGNOTE_ITS ---
- If Service Date Differs Date of service: 05/09/21 Time of Service: 09:31 Care Management Progress Note S/O:Kervin was sitting up in bed visiting with his Dahiana when CM met with him. He was very pleasant and engaged readily with CM. Kervin and Dahiana had questions about insurance and how his Medicare works with [facility] benefits. His P[facility] is in [place] [facility] and he often receives care there. Kervin anticipates being discharged tomorrow after his stress test. He was not clear why it could not be completed as an outpatient and CM explained that the provider has concerns about the runs of ventricular tachycardia Kervin has experienced at night. A: Kervin is a 76 year old man admitted on 05/05/21 with UGI Bleed and symptomatic anemia P:Kervin will likely be discharged home with no new services. He will follow up with his PCP and Cardiology and transport with Dahiana.CM will continue to support Kervin and assess for discharge concerns.
[2021-05-09] MEDS: IRON SUCROSE COMPLEX 300 MG in Normal Saline 250 ML 167 MG IVPB (10:15)
[2021-05-09] MEDS: Polyethylene Glycol 3350 17 GM PACKET PO ×2 (10:15→20:50)
[2021-05-09] MEDS: Docusate Sodium 100 MG CAP PO ×3 (10:15→20:47)
[2021-05-09] MEDS: Normal Saline 500 ML 30 ML IV (10:15)
--- NOTE | 2021-05-09 10:45 | PGE_ITS ---
Date of Service Date of service: 05/09/21 Time of Service: 10:45 Assessment and Plan Assessment and plan (1) Cardiomyopathy: Status: Acute Assessment and plan: Differential diagnosis include ischemic heart disease, myocarditis, infiltrative disease. Plan for treadmill stress MPI tomorrow morning. Further evaluation based on the results of his stress test. Patient will need to follow-up with cardiology upon discharge. Patient has expressed an interest to follow-up with Dr. Locke if his [facility] medical plan will allow him to do so. Patient would prefer to remain local rather than have to make drives down to [place] especially during the winter months. Qualifiers: Cardiomyopathy type: unspecified Qualified Code(s): I42.9 - Cardiomyopathy, unspecified (2) Ventricular dysrhythmia: Status: Acute Assessment and plan: Patient had another brief run of nonsustained ventricular tachycardia during the night that lasted 9 beats and he was asy mptomatic. He has no electrolyte abnormalities and his anemia is being corrected with blood transfusion and iron infusion. Echocardiogram demonstrates moderate LV dysfunction with global hypokinesis. RV function appears to be normal. Plan will be for stress MPI in the morning and further work-up based on the results of this. Patient would benefit from low-dose beta-delia but I will hold on starting this until his stress MPI is done. He would also benefit from low-dose MARIANO inhibitor or angiotensin receptor delia. Diuretics can be used on a as needed basis if he has edema presently he appears to be euvolemic. (3) Syncope: Status: Chronic Assessment and plan: Syncope was probably due to severe anemia but very well may have been complicated by his nonsustained ventricular tachycardia. Qualifiers: Syncope type: unspecified Qualified Code(s): R55 - Syncope and collapse (4) Esophageal ulcer with bleeding: Status: Acute Assessment and plan: No further active bleeding continue Carafate along with twice a day dosing of a PPI. (5) Anemia due to acute blood loss: Status: Acute Assessment and plan: Today will be his third dose of venofer. I would not give him a further iron until we recheck his levels in 4 to 6 weeks. I will repeat his CBC tomorrow and then again in 1 week. (6) GERD (gastroesophageal reflux disease): Status: Chronic Assessment and plan: Continue PPI twice a day along with Carafate. Qualifiers: Esophagitis presence: esophagitis presence not specified Qualified Code(s): K21.9 - Gastro-esophageal reflux disease without esophagitis (7) DVT prophylaxis: Status: Acute Assessment and plan: Use SCDs and ALAN hose. Not a candidate for anticoagulation due to recent GI bleeding. Subjective Subjective Interval history since last seen: Mr. Bailey denies any chest pain or shortness of breath. I reviewed his echocardiogram with him which was abnormal. Patient has diffuse hypokinesis of his left ventricle with an ejection fraction of 40 to 45%. RV size and function was normal. Both atria were normal in size. Patient has no hemodynamically significant valvular disease. There is no reg ional wall motion abnormalities of the left ventricle. In light of his paroxysmal ventricular tachycardia I recommend that he have a stress MPI prior to discharge to evaluate for ischemic heart disease. We checked with radiology and specialty clinic regarding performance of a stress MPI today and they are unable to do this. However he is on the schedule for stress MPI for tomorrow morning. Patient indicated that he is willing and capable of doing a treadmill study therefore we will do a nuclear GXT tomorrow morning. As far as his anemia his hemoglobin is remained stable at 9 g although repeat CBC was not done today. He is receiving parenteral iron infusions and I will recheck his CBC along with a reticulocyte count in the morning and a repeat BMP in the morning. He has no abdominal complaints such as nausea or vomiting. He is concerned though that he has not had a bowel movement and we have ordered some stool softeners and laxatives for him. Exam Narrative Exam Narrative: Elderly white male lying in bed receiving his venofer infusion. He is alert and oriented person place time circumstance. Lungs are clear to auscultation Heart regular rate and rhythm with no appreciable murmur rub or gallop. Abdomen soft nondistended nontender Extremities without peripheral cyanosis or edema. Objective Last Vital Signs Temp 36.8 C 05/09/21 08:36 Pulse 73 05/09/21 08:36 Resp 17 05/09/21 08:36 BP 122/75 05/09/21 08:36 Pulse Ox 97 05/09/21 08:36 Laboratory Results - last 24 hr 05/08/21 05/09/21 11:00 06:30 Sodium 143 Potassium 3.7 Chloride 108 H Carbon Dioxide 29.5 Anion Gap 5.5 BUN 16 D Creatinine 1.0 Estimated GFR/1.73 m2 >= 60.00 Glucose 102 Calcium 8.4 L Troponin I < 0.05
--- NOTE | 2021-05-09 14:10 | W.PM.PROGNOT ---
Documented by User: [email or web address] Loya 05/09/21 14:13 Date of Service Date of service: 05/09/21 Time of Service: 14:10 Assessment and Plan Assessment and plan (1) Esophageal ulcer with bleeding: Status: Acute Assessment and plan: POD#3 s/p EGD -Esophageal ulcer, Gastritis and Duodenitis seen -Has colonoscopy scheduled at [place] in June -Hgb continues to be stable -Continue PPI BID and Carafate as an outpatient -Avoid NSAIDS/ASA/Caffeine Patient will need to follow up with Dr. Richardson as an out-patient to review pathology results from EGD. Surgical group will sign off at this time. (2) Anemia due to acute blood loss: Status: Acute (3) Upper GI bleeding: Status: Acute Assessment and plan: -Resolved (4) Lung infiltrate: Status: Acute Subjective Subjective Interval history since last seen: Patient reports that he continues to feel better. Denies yet having a BM since admission. He denies any abdominal pain, heart burn or indigestion. Exam Const General: cooperative, healthy appearing and comfortable Orientation: alert and oriented x3 Resp Effort & Inspection: normal respiratory effort, no audible wheezes and no cough Objective Last Vital Signs Temp 36.8 C 05/09/21 08:36 Pulse 73 05/09/21 08:36 Resp 17 05/09/21 08:36 BP 122/75 05/09/21 08:36 Pulse Ox 97 05/09/21 08:36 Laboratory Results - last 24 hr 05/09/21 06:30 Sodium 143 Potassium 3.7 Chloride 108 H Carbon Dioxide 29.5 Anion Gap 5.5 BUN 16 D Creatinine 1.0 Estimated GFR/1.73 m2 >= 60.00 Glucose 102 Calcium 8.4 L Documented by User: Samira Richardson DO 05/09/21 21:57 Assessment and Plan Assessment and plan (1) Esophageal ulcer with bleeding: Status: Acute Assessment and plan: agree w/ above. d/c when medically stable. F/u in Sx clinic for repeat Hgb and review of pathology.
[2021-05-10] VITALS (7 sets, daily range): BP systolic 103–118; BP diastolic 65–69; PULSE 67–102; RESP 17–18; TEMP 36.8–37.2; O2SAT 97–100
--- NOTE | 2021-05-10 07:00 | DI.NM_ITS ---
APPROVED REPORT Exam: Pharmacologic paired w/ low level exercise Patient Location: In-Patient Room/Bed: 208 Stress Nurse: Dede Aranda RN Ordering Provider:JASPREET BRICEZEE, Contact Number: [phone] BMI: 24.74 Baseline Rhythm: Sinus Rhythm Comment: T wave inversions in leads II, III, aVF, V5, V6 Indications: CARDIOMYOPATHY, EVALUATE FOR CAD Medical History Medical History: GERD, Ventricular dysrhythmia, Syncope, Lung infiltrate, GI Bleed, Cardiomyopathy Cardiac Medications: Aspirin, Pantoprazole Allergies: No known drug allergies Cardiac Risk Factors: FHX of CAD, Smoking (former) Previous Cardiac Procedures: None Pretest Chest Pain Characteristics: No chest pain Exercise History: Indeterminate Lung Sounds: Clear to auscultation Heart Sounds: Regular Stress Test Details Test: Pharmacologic stress was paired with low level exercise. Reason for pharmacologic stress test: T wave inversions. Rest Isotope: Tc-99m Sestamibi. Dose: 11.0 Date: 05/10/2021 Injection Time: 1115 Stress Isotope: Tc-99m Sestamibi. Dose: 34.4 Date: 05/10/2021 Injection Time: 1330 HR Resting HR Supine: 64 bpm Max Heart Rate (APMHR): 146.440083 bpm Resting HR Standin bpm Target HR (85% APMHR): 124.979945 bpm Max HR Achieved: 126 bpm % of APMHR: 86.30 Recovery HR: 85 bpm BP Resting BP Supine: 132/75 mmHg Resting BP Standin/68 mmHg Max BP: 130/60 mmHg Recovery BP: 124/68 mmHg BP response to stress: Abnormal hypotensive response to stress. ECG Resting ECG: Sinus Rhythm Ectopy: None Comment: T wave inversions noted in II, III, aVF, V5, V6 Stress ECG: Sinus Tachycardia ST Change: No significant ST segment changes noted Arrhythmia: occasional PVCs Recovery ECG: Sinus Rhythm Recovery ST Change: T waves flipped upright 3 min after lexiscan injection. Returned to inverted base line by 7 min post injection. Clinical Stress Symptoms: Dyspnea, Headache Rate Pressure Product: [id number] Stress ECG Conclusion 1. The resting electrocardiogram showed left ventricular hypertrophy with repolarization abnormalitie s 2. The patient underwent combined pharmacologic and low level stress testing. Peak heart rate [facility] was 86% of predicted 3. Blunted blood pressure response to stress 4. Electrocardiographically there was no evidence of myocardial ischemia 5. Occasional PVCs were seen Stress Test Summary STAGE HR BP Symptoms NOTES Supine 64 132/72 1 min post Lexiscan injection 118 122/68 SOB, WOODS 3 min post Lexiscan injection 115 130/60 Symptoms resolved 6 min post Lexiscan injection 85 124/68 Standing 72 128/68 MPI Conclusion No evidence of myocardial ischemia or prior infarction LV is mildly dilated, EF 37% Radiologist Interpretation Radiologist agrees with Information Security's Interpretation. Radiologist Interpretation by: Edi Aceves MD Interpretation Date/Time: 05/12/2021 09:39:53
[2021-05-10 07:34] LABS: Abs Immature Grans 0.04 10^3/uL (0.0-0.06); Absolute Basophil Count 0.03 10^3/uL (0.0-0.2); Absolute Eosinophil Count 0.34 10^3/uL (0.0-0.7); Absolute Lymphocyte Count 1.51 10^3/uL (1.2-3.4); Absolute Monocyte Count 0.43 10^3/uL (0.1-0.8); Absolute Neutrophil Count 4.01 10^3/uL (1.2-6.7); Basophils % 0.5; Eosinophils % 5.3; HCT 29.4 % (40.0-50.0); HGB 9.9 g/dL (13.5-17.5); Immature Grans % 0.6; Lymphocytes % 23.7; MCH 33.3 pg (27.0-33.0); MCHC 33.7 % (32.0-36.0); MPV 12.7 fL (8.0-11.0); Monocytes % 6.8; Neutrophils % 63.1; Nucleated RBC 0 %; Platelet Count 159 10^3/uL (130-400); RBC 2.97 10^6/uL (4.36-5.78); RDW 14.6 % (11.8-14.1); RDW-SD 50.1 fL; Reticulocyte 3.7 % (0.5-2.4); WBC 6.36 10^3/uL (4.4-10.8)
[2021-05-10] MEDS: Diclofenac 1% Gel 100 GM TUBE TP (07:39)
[2021-05-10] MEDS: Sucralfate 1 GM TAB PO (07:39)
[2021-05-10] MEDS: Potassium Chloride Liquid 20 MEQ PKT PO (07:39)
[2021-05-10] MEDS: Polyethylene Glycol 3350 17 GM PACKET PO (07:39)
[2021-05-10] MEDS: Pantoprazole 40 MG TABCR PO (07:39)
[2021-05-10 07:42] LABS: Anion Gap 5.5 mmol/L (3-11); BUN 16 mg/dL (7-18); CO2 28.5 mmol/L (21.0-32.0); CREATININE 0.9 mg/dL (0.70-1.30); Calcium 8.3 mg/dL (8.5-10.1); Chloride 107 mmol/L (98-107); Glucose 96 mg/dL (74-106); Magnesium 1.9 mg/dL (1.8-2.4); Sodium 141 mmol/L (136-145)
[2021-05-10] MEDS: Docusate Sodium 100 MG CAP PO (07:49)
[2021-05-10] MEDS: Regadenoson 0.4 MG/5 ML SYR IVP (13:36)
--- NOTE | 2021-05-10 16:07 | PDOC.CMDIS ---
- If Service Date Differs Date of service: 05/10/21 Time of Service: 16:07 LACE Index Scoring Tool - Questions: Length of Stay (in days): 4 - 6 Acuity (Admit via E.D.?): Yes Comorbidities: Any Tumor E.D. Visits: 1 - Answers: Total Score: 10 Risk of Readmission: High Risk Care Management Discharge Reason for Hospitalization: Upper GI bleeding, symptomatic anemia Discharge Plan: Kervin will be discharged home with no new services. He will follow up with his community providers including his PCP and [employer] and transport with his spouse Ayana. Patient/Family Education Needs: Review discharge instructions, medications, activity, limitations, discuss Ask Me Three.
--- NOTE | 2021-05-10 16:11 | DSE_ITS ---
Date of service: 05/10/21 Time of Service: 16:11 DS: Diagnosis Discharge Diagnosis (1) Anemia due to acute blood loss: Status: Acute (2) Esophageal ulcer with bleeding: Status: Acute (3) Upper GI bleeding: Status: Acute (4) Ventricular dysrhythmia: Status: Acute (5) Cardiomyopathy: Status: Acute (6) GERD (gastroesophageal reflux disease): Status: Chronic (7) Kidney lesion, [place], right: Status: Acute (8) COVID-19 ruled out by laboratory testing: Status: Ruled-out Discharge Plan Disposition Patient Disposition: HOME Condition: Stable Discharge Details Reason For Visit: Upper GI bleeding, symptomatic anemia Admit Date/Time: 05/05/21 12:16 Admit Provider: Louisa Chaparro Attending Provider: Louisa Chaparro Primary Care Provider: Unknown,Unknown Hospital Course Hospital Course: Mr Bailey is a 76 year old male with PMHx of arthritis, GERD, gingival recession, IBS, who was on a combination of aspirin, NSAIDs, SSRIs and long-term doxycycline as outpatient who was admitted to [facility] hospitalist service (ICU) on 05/05/21 with acute upper GI bleed and symptomatic anemia, requiring transfusion of 2 units of pRBCs. The patient underwent an EGD by Dr Richardson on 05/06/21. There was no active bleeding, but there was moderate duodenitis with punctate ulceration, mild gastritis, moderate esophagitis with ulceration and a very small hiatal hernia on the EGD. Biopsies were done and are pending at the time of discharge. The patient's bleeding clinically resolved, and he was initiated on a diet, which he is tolerating. He was noted to have evidence of Vtach (short bursts of nonsustained Vtach) on tele. Echo revealed LVEF of 40-45%. MPI was negative (official read still pending - PCP to follow up). The patient is being discharged home today with a cardiac event recorder. He is being initiated on lopressor 12.5 mg PO BID. He needs to follow up with cardiology and with general surgery - both referrals are being sent. For his incidentally found R renal nodule (exophytic), you are being referred to urology. Care for patient as well as completion of his discharge summary on day of discharge took 45 minutes. Home Meds and New Rx's Prescriptions: New sucralfate 1 gram Tablet 1 g PO AC & HS Qty: 60 RF: 2 pantoprazole 40 mg Tablet,Delayed Release (Dr/Ec) 40 mg PO BID@ Qty: 60 RF: 6 metoprolol tartrate 25 mg tablet 12.5 mg PO BID Qty: 30 RF: 0 Discontinued aspirin [Aspir-81] 81 mg Tablet,Delayed Release (Dr/Ec) 81 mg PO DAILY RF: 0 sertraline [Zoloft] 50 mg Tablet 50 mg PO BID RF: 0 doxycycline hyclate 120 mg Tablet,Delayed Release (Dr/Ec) 120 mg PO DAILY RF: 0 naproxen [Naprosyn] 250 mg Tablet 250 mg PO DAILY RF: 0 Discharge Instructions Instructions: Metoprolol (By mouth), Gastrointestinal Bleeding (DC), Diet for Stomach Ulcers and Gastritis (GEN) Additional Instructions: Return to the hospital with any fever, bleeding, chest pain, or shortness of breath. Follow up with your PCP, general surgery, cardiology, urology. Stand Alone Forms: Nursing Discharge Form Referrals: Elias Hussein MD [ [facility] STAFF PHYSICIAN] - ( 1.6 x 1.3 cm exophytic hyperdense right renal nodule on CT) Ayla Locke MD [ [facility] STAFF PHYSICIAN] - (Please call the office tomorrow to make a follow up appointment. [phone].) Samira Richardson DO [OSTEOPATHIC DOCTOR] - (Please call the office tomorrow to make a follow up appointment.) Activity:: Activity as Tolerated Equipment/Supplies:: cardiac event recorder Diet:: Low Sodium Discharge Orders Discharge Orders: Discharge Order (Routine); Ordered 05/10/21 Ordered By: Louisa Chaparro Other Ambulatory Orders: Cardiac Event Recorder (Routine) Timeframe: 1 Day Facility: [facility] - Location: Respiratory Therapy Ordered By: Louisa Chaparro DS: Summary Time Spent with Patient providing and/or coordinating discharge services: Greater than 30 minutes Status at Discharge Functional status at discharge: independent ambulation Overall status at discharge: patient is back to baseline Mental Status: mental status grossly normal Speech and Movement: speech and movement normal Mood: anxious mood Affect: anxious affect Exam Narrative Exam Narrative: General: Pleasant elderly male who, A&Ox3, anxious HEENT: EOMI, MMM Cardiovascular: RRR, no m/r/g Lungs: CTAB Gastrointestinal: soft, nontender, nondistended Extremities: no edema BLE's, 1+ pedal pulses Psych Mental Status: mental status grossly normal Speech and Movement: speech and movement normal Mood: anxious mood Affect: anxious affect DS: Data Vitals/I&O Vitals and I&O: Vital Signs Temperature 37.2 C 05/10/21 15:43 Temperature Source Tympanic 05/10/21 15:43 Pulse 92 H 05/10/21 15:43 Pulse Rhythm Regular 05/10/21 15:49 Pulse 62 05/07/21 14:00 Respiratory Rate 18 05/10/21 15:43 Respiratory Effort Non-Labored 05/10/21 15:49 Respiratory Depth Normal 05/10/21 15:49 Respiratory Pattern Normal 05/10/21 15:49 Blood Pressure 103/67 05/10/21 15:43 Blood Pressure Mean 76 05/07/21 13:58 Blood Pressure Position Supine 05/06/21 16:10 Pulse Oximetry 98 05/10/21 15:43 Oxygen Delivery Method Room Air 05/10/21 15:43 Oxygen Flow Rate 0 05/10/21 15:43 Pain Level 0 05/10/21 07:19 Intake & Output 05/09/21 05/10/21 05/10/21 23:59 11:59 23:59 Intake Total 730 / 1610 120 / 370 250 / 370 Output Total 900 / 1250 900 / 900 Balance -170 / 360 -780 / -530 250 / -530 Weight 72.5 kg Intake: IV 10 Oral 720 / 1090 120 / 370 250 / 370 Output: Urine 900 / 1250 900 / 900 Other: Urine Color Dark Saloni Yellow Light Saloni Urine Appearance Clear Clear Urine Odor None Comment pt is voiding independently Stool Size Small Stool Characteristics Soft Black Voiding Methods Toilet Urinal Data Completed and Pending Completed studies during hospitalization [Text1]: CT chest/abdomen/pelvis: 1. No acute abdominal pelvic process. 2. 1.6 x 1.3 cm exophytic hyperdense right renal nodule. This may represent a hemorrhagic cyst, but further evaluation with an MRI is recommended. 3. Thickening of the wall of the proximal esophagus. Differential considerations include infectious/inflammatory esophagitis or mass. This should be further evaluated with upper GI barium examination or upper endoscopy. 4. Small right middle lobe infiltrate. 5. Results of this exam have been verbally communicated with provider. CT head w/o contrast: 1. No acute intracranial process. 2. Results of this exam have been verbally communicated with provider. Echo ;Normal left ventricular wall thickness. The LV chamber is borderline dilated. Estimated ejection fraction is 40 to 45% with global hypokinesis Normal right ventricular size and systolic function Both atria are normal in size Aortic valve is trileaflet and mildly sclerotic without stenosis or regurgitation Mildly thickened mitral leaflets. Trace to mild mitral regurgitation Normal tricuspid valve with trace regurgitation The pulmonic valve was not well visualized Pending studies at discharge: Biopsies - EGD Final read MPI Labs on day of discharge: Labs from last 24 hours 05/10/21 05/10/21 05/10/21 06:10 06:10 06:10 WBC 6.36 RBC 2.97 L Hgb 9.9 L Hct 29.4 L MCV 99.0 H MCH 33.3 H MCHC 33.7 RDW 14.6 H Plt Count 159 MPV 12.7 H Reticulocyte % (Auto) 3.7 H Immature Gran % 0.6 Neutrophils % 63.1 Lymphocytes % 23.7 Monocytes % 6.8 Eosinophils % 5.3 Basophils % 0.5 Nucleated RBC % 0 Absolute Neutrophils 4.01 Absolute Lymphocytes 1.51 Absolute Monocytes 0.43 Absolute Eosinophils 0.34 Absolute Basophils 0.03 Sodium 141 Potassium 4.0 Chloride 107 Carbon Dioxide 28.5 Anion Gap 5.5 BUN 16 Creatinine 0.9 Estimated GFR/1.73 m2 >= 60.00 Glucose 96 Calcium 8.3 L Magnesium 1.9 Crossmatch 05/06/21 06:25 WBC RBC Hgb Hct MCV MCH MCHC RDW Plt Count MPV Reticulocyte % (Auto) Immature Gran % Neutrophils % Lymphocytes % Monocytes % Eosinophils % Basophils % Nucleated RBC % Absolute Neutrophils Absolute Lymphocytes Absolute Monocytes Absolute Eosinophils Absolute Basophils Sodium Potassium Chloride Carbon Dioxide Anion Gap BUN Creatinine Estimated GFR/1.73 m2 Glucose Calcium Magnesium Crossmatch See Detail [facility] Medical History (Updated 05/10/21 @ 16:28 by Louisa Chaparro MD) Arthritis Chronic back pain GERD (gastroesophageal reflux disease) H/O prostate cancer IBS (irritable bowel syndrome) Ventricular dysrhythmia Surgical History History of radical prostatectomy S/P colonoscopy Family History Father Heart disease Son Heart disease Brother Heart disease Hypertension Paternal Grandfather Stroke aneurysm Social History Smoking/Tobacco Use Status: Former Tobacco Use Smoking risk assessment performed?: Yes Alcohol Intake: former Substance use type: does not use Do you feel safe at home: Yes Do you feel safe in your relationship?: Yes
--- NOTE | 2021-05-10 16:17 | PHA.REVIEW ---
Pharmacy Admission Review - Admission Clinical Review (Last Updated 05/09/21 @ 08:51 by Ayla Locke MD) Cardiomyopathy (Acute) Ventricular dysrhythmia (Acute) Esophageal ulcer with bleeding (Acute) Lung infiltrate (Acute) Discharge planning issues (Acute) DVT prophylaxis (Acute) Anemia due to acute blood loss (Acute) Upper GI bleeding (Acute) Acute upper GI bleeding (Acute) No Known Allergies Allergy (Unverified 05/05/21 10:26) Resuscitation Status Full Code Height 5 ft 7 in Weight 72.5 kg - Renal Dosing Renal Dosing: BUN 16 mg/dL (7-18) 05/10/21 06:10 Creatinine 0.9 mg/dL (0.70-1.30) 05/10/21 06:10 Medications needing adjustments: Reviewed (CRCL~67ML/MIN) - Anticoagulation Anticoagulation: Hgb 9.9 g/dL (13.5-17.5) L 05/10/21 06:10 Hct 29.4 % (40.0-50.0) L 05/10/21 06:10 Plt Count 159 10^3/uL (130-400) 05/10/21 06:10 INR 1.1 (0.9-1.1) 05/05/21 09:34 Creatinine 0.9 mg/dL (0.70-1.30) 05/10/21 06:10 DVT Prophylaxis: N/A (GI BLEED) Therapeutic Anticoagulation: N/A - Relevant Labs Sodium 141 mmol/L (136-145) 05/10/21 06:10 Potassium 4.0 mmol/L (3.5-5.1) 05/10/21 06:10 Chloride 107 mmol/L (98-107) 05/10/21 06:10 Magnesium 1.9 mg/dL (1.8-2.4) 05/10/21 06:10 - DM Control DM Control: Glucose 96 mg/dL (74-106) 05/10/21 06:10 - Heart Failure/NM Heart Failure/NM: Troponin I < 0.05 ng/mL (<0.06) 05/08/21 11:00 NT-Pro-B Natriuret Pep 3041 pg/mL (<300) H 05/08/21 06:20 - BP Control BP Control: Blood Pressure 103/67 Blood Pressure 117/65 - Qtc Review If Elevated: Reviewed (458) - IV to PO Switch IV Medications: Reviewed (IV ondansetron) - Home Meds Home Med List reviewed: Reviewed (metoprolol not ordered) - Current meds Current Medication Order Review: Reviewed
--- NOTE | 2021-05-12 16:10 | RESPIRATORY ---
Reported critical [facility] report [facility].
--- NOTE | 2021-06-10 12:35 | W.CARDEVENT ---
Date of service: 06/10/21 Time of Service: 12:35 Cardiac Event Recorder Referring Provider:: Louisa Chaparro Indications:: NSVT Cardiac Event Note: This is a 30-day event recorder, ordered for ventricular dysrhythmias in the setting of cardiomyopathy Predominant rhythm was sinus with an average heart rate of 75. Minimum was 57, maximum 112 There were multiple runs of nonsustained ventricular tachycardia, ranging from 4-13 beats in duration There was no atrial fibrillation, no high-grade AV block, no pauses greater than 3 seconds There were no apparent patient symptoms
== END 2021-05-10 17:24 | disposition home or self-care (01) | DRG 374 ==
LOC: ER 13:02 → ICU 13:11 → MS 05-07 17:54
PROVIDERS: Internal Medicine; Surgery; Admitting Provider Internal Medicine; Emergency Provider Emergency Medicine; Visit Provider Internal Medicine
PROC: 0DJ68ZZ Inspection of Stomach, Via Natural or Artificial Opening Endoscopic (ICD-10-PCS; CPT 43235; principal; 2021-05-06 08:15)
DX: K22.11 Ulcer of esophagus with bleeding; K29.81 Duodenitis with bleeding; K29.61 Other gastritis with bleeding; K26.4 Chronic or unspecified duodenal ulcer with hemorrhage; C16.0 Malignant neoplasm of cardia; D62 Acute posthemorrhagic anemia; I47.2 Ventricular tachycardia; I42.9 Cardiomyopathy, unspecified; K31.89 Other diseases of stomach and duodenum; T50.995A Adverse effect of other drugs, medicaments and biological substances, initial encounter; R55 Syncope and collapse; R91.8 Other nonspecific abnormal finding of lung field; K58.9 Irritable bowel syndrome, unspecified; G89.29 Other chronic pain; M54.9 Dorsalgia, unspecified; K06.010 Localized gingival recession, unspecified; Z85.46 Personal history of malignant neoplasm of prostate; Z87.891 Personal history of nicotine dependence; Z20.822 Contact with and (suspected) exposure to COVID-19; K44.9 Diaphragmatic hernia without obstruction or gangrene; I49.3 Ventricular premature depolarization; E87.79 Other fluid overload; R93.5 Abnormal findings on diagnostic imaging of other abdominal regions, including retroperitoneum
CPT/HCPCS: 43239; 36415; 36430; 74177; 78452; 80048; 80053; 85027; 86850; 86900; 86901; 86920; 87635; 88305; 93005; 93270; 96365; 96366; 96375; 96376; 99285; 70450; 71260; 82728; 83540; 83550; 83735; 83880; 84443; 84484; 85014; 85018; 85025; 85045; 85610; 85730; 86644; 93010; 93017; 93306; 99232; 99239; 99284; 99291; J1756; J1941; J2405; J2785; J3490; P9016

== ENCOUNTER 2021-05-18 03:40 | Outpatient (CLI) | payer OTHER, SELFPAY ==
[2021-05-18 09:33] LABS: Abs Immature Grans 0.03 10^3/uL (0.0-0.06); Absolute Basophil Count 0.05 10^3/uL (0.0-0.2); Absolute Eosinophil Count 0.17 10^3/uL (0.0-0.7); Absolute Lymphocyte Count 1.45 10^3/uL (1.2-3.4); Absolute Monocyte Count 0.45 10^3/uL (0.1-0.8); Basophils % 0.8; Eosinophils % 2.6; HCT 34.6 % (40.0-50.0); HGB 11.1 g/dL (13.5-17.5); Immature Grans % 0.5; Lymphocytes % 21.8; MCH 33.8 pg (27.0-33.0); MCHC 32.1 % (32.0-36.0); MCV 105.5 fL (80-95); MPV 11.3 fL (8.0-11.0); Monocytes % 6.8; Neutrophils % 67.5; Nucleated RBC 0 %; Platelet Count 229 10^3/uL (130-400); RBC 3.28 10^6/uL (4.36-5.78); RDW 15.8 % (11.8-14.1); RDW-SD 61.3 fL; WBC 6.65 10^3/uL (4.4-10.8)
[2021-05-18 10:02] LABS: Iron 82 ug/dL (65-175); Total Iron Binding Capacity 263 ug/dL (250-450); Transferrin Sat 31 % (20-55)
== END 2021-05-18 03:41 | disposition home or self-care (01) ==
LOC: LBO 03:41
PROVIDERS: PCP Nurse Practitioner Family; Visit Provider Surgery
DX: D62 Acute posthemorrhagic anemia (principal); K92.2 Gastrointestinal hemorrhage, unspecified; K22.11 Ulcer of esophagus with bleeding
CPT/HCPCS: 36415; 83540; 83550; 85025

== ENCOUNTER 2021-05-27 09:08 | Outpatient (CLI) | payer MEDICARE, SELFPAY ==
--- NOTE | 2021-05-27 09:00 | RT.EKG_ITS ---
APPROVED REPORT Exam: Resting ECG Reason for Exam: [facility] Patient Location: O HR:57 bpm ECG Measurements Heart Rate 57 AXIS FL 192 P 58 QRSd 113 QRS 1 QT 433 T 253 QTc 422 Conclusion Sinus rhythm...normal P axis, V-rate 50- 99 Borderline intraventricular conduction delay...QRSd >112mS Abnormal R-wave progression, early transition...QRS area>0 in V2 Nonspecific T abnormalities, diffuse leads...T <-0.10mV, ant/lat/inf Baseline wander in lead(s) aVL,aVF,V5,V6
== END 2021-05-27 09:09 | disposition home or self-care (01) ==
LOC: DI.CARD 09:11
PROVIDERS: PCP Nurse Practitioner Family; Visit Provider Internal Medicine Cardiovascular Disease
DX: I42.9 Cardiomyopathy, unspecified (principal)
CPT/HCPCS: 93010

== ENCOUNTER → 2021-06-21 10:56 | Outpatient (BNVA) | payer MEDICARE, SELFPAY | PROVIDERS: PCP Nurse Practitioner Family; Referring Provider Nurse Practitioner Family; Visit Provider Internal Medicine Cardiovascular Disease | DX: I25.10 Atherosclerotic heart disease of native coronary artery without angina pectoris (principal); I49.9 Cardiac arrhythmia, unspecified; I42.8 Other cardiomyopathies; C15.9 Malignant neoplasm of esophagus, unspecified | CPT/HCPCS: 99214 ==

== ENCOUNTER 2023-07-27 13:33 | Emergency (ER) | payer OTHER, SELFPAY ==
[2023-07-27 13:36] VITALS: BP 128/70; PULSE 83; RESP 18; TEMP 37.3; O2SAT 97
--- NOTE | 2023-07-27 14:45 | DI.RAD_ITS ---
Exam(s) XR CHEST 2V PA LATERAL EXAM: XR CHEST 2V PA LATERAL CLINICAL HISTORY: chest pain. TECHNIQUE: 2D digital imaging was performed. COMPARISON: No exams were available for comparison FINDINGS: 2 views: Heart size is normal. The mediastinum is not widened. Left lung is clear. Tenting of left hemidiaphragm incidentally noted. There is, however, infiltrate mid right lung field. Appears to be in the right upper lobe. No pleural effusions. IMPRESSION: Right midlung infiltrate. No pleural effusions. DATA REPOSITORY: RADIATION DOSE DELIVERED:
--- NOTE | 2023-07-27 14:50 | ED.GENADUL_ITS ---
Discharge Plan Disposition Patient Disposition: Home Discharge Details Clinical Impression: COVID-19, Pneumonia Primary Care Provider: Bridget Brush ED Provider: Teena Coelho Home Meds and New Rx's Prescriptions: New doxycycline hyclate 100 mg capsule 100 mg PO BID Qty: 20 0RF Continued doxycycline hyclate 20 mg tablet 20 mg PO BID Patient Comments: 05/26/21 pt has been on this senior living [facility] carvedilol 3.125 mg tablet 3.125 mg PO BID Qty: 60 8RF Rx Instructions: must administer with a meal/food amiodarone 200 mg tablet 200 mg PO DAILY Qty: 30 8RF sertraline 50 mg tablet 100 mg PO DAILY sucralfate 1 gram Tablet 1 g PO AC & HS Qty: 60 2RF pantoprazole 40 mg Tablet,Delayed Release (Dr/Ec) 40 mg PO BID@07 Qty: 60 6RF Discharge Instructions Instructions: Viral Syndrome (ED), Pneumonia (ED) Additional Instructions: Take antibiotic as prescribed, yogurt daily while on antibiotic Take Tylenol as needed for discomfort, return to the emergency room for reassessment should he develop shortness of breath, persistent fever or chills, weakness, or with any new or progressing symptoms Referrals: Bridget Brush [Primary Care Provider] - 1 day Discharge Data Discharge Date/Time-TO BE ENTERED AT DEPARTURE: 07/27/23 14:59 Medical Decision Making 78-year-old male presenting with recent diagnosis of COVID-19, 9 days past initial onset of symptoms with right-sided rib pain with coughing predominantly, denies any shortness of breath or persistent chest pain Denies any calf pain or swelling, history of coagulopathy Neurovascularly intact, no calf swelling or tenderness, lungs clear to auscultation bilaterally, cardiac rate rhythm regular Chest x-ray ordered for further evaluation with right lobe infiltrate, will treat with doxycycline for likely bacterial component superimposed on viral infection Patient is afebrile, nontoxic, oxygenation 98% on room air, speaking in complete sentences in no acute distress, low suspicion for cardiac etiology of patient's complaints or pulmonary embolism given lack of significant tachypnea or tachycardia, or hypoxia Patient encouraged to return for reassessment should he have persistent or worsening symptoms despite taking the oral antibiotics, doxycycline Recheck in 48 hours recommending HPI General Date/Time Provider Initiated Documentation: 07/27/23 13:42 . HPI Narrative: This 78-year-old male with history of cardiomyopathy, esophageal cancer, coronary artery disease presents with report of some chest pain with cough and deep breathing only, denies any shortness of breath. States that he tested COVID-positive approximately 9 days ago and is feeling otherwise improved. Denies any calf pain or swelling, recent flights, surgeries, long drives. Denies any history of coagulopathy. Related Data Home Medications Medication Instructions Recorded Confirmed pantoprazole 40 mg tablet,delayed 40 mg PO BID@0730,1999 #60 tabs 05/08/21 06/21/21 release sucralfate 1 gram tablet 1 g PO AC & HS #60 tabs 05/08/21 06/21/21 amiodarone 200 mg tablet 200 mg PO DAILY #30 tabs 05/27/21 06/21/21 carvedilol 3.125 mg tablet 3.125 mg PO BID #60 tabs 05/27/21 06/21/21 doxycycline hyclate 20 mg tablet 20 mg PO BID 05/27/21 06/21/21 sertraline 50 mg tablet 100 mg PO DAILY 05/30/21 06/21/21 doxycycline hyclate 100 mg capsule 100 mg PO BID #20 caps 07/27/23 Previous Rx's Medication Instructions Recorded pantoprazole 40 mg tablet,delayed 40 mg PO BID@0730,1999 #60 tabs 05/08/21 release sucralfate 1 gram tablet 1 g PO AC & HS #60 tabs 05/08/21 amiodarone 200 mg tablet 200 mg PO DAILY #30 tabs 05/27/21 carvedilol 3.125 mg tablet 3.125 mg PO BID #60 tabs 05/27/21 doxycycline hyclate 100 mg capsule 100 mg PO BID #20 caps 07/27/23 Allergies Allergy/AdvReac Type Severity Reaction Status Date / Time No Known Allergies Allergy Verified 07/27/23 13:39 General Stated Complaint: Chest/Rib AZIZA: 3 PFSH All Active Problems (Updated 07/27/23 @ 14:53 by SHAHRZAD Ortega) Pneumonia (Acute) COVID-19 (Acute) Coronary artery disease (Chronic) Esophageal cancer (Acute) Kidney lesion, [place], right (Acute) Cardiomyopathy (Acute) Ventricular dysrhythmia (Acute) Esophageal ulcer with bleeding (Acute) Lung infiltrate (Acute) Discharge planning issues (Acute) DVT prophylaxis (Acute) Syncope (Chronic) Anemia due to acute blood loss (Acute) Upper GI bleeding (Acute) GERD (gastroesophageal reflux disease) (Chronic) Acute upper GI bleeding (Acute) Active Problem List Esophageal cancer (Acute) Kidney lesion, [place], right (Acute) Cardiomyopathy (Acute) Ventricular dysrhythmia (Acute) Esophageal ulcer with bleeding (Acute) Lung infiltrate (Acute) Discharge planning issues (Acute) DVT prophylaxis (Acute) Syncope (Chronic) Anemia due to acute blood loss (Acute) Upper GI bleeding (Acute) GERD (gastroesophageal reflux disease) (Chronic) Acute upper GI bleeding (Acute) Medical History Anxiety Arthritis Chronic back pain H/O prostate cancer (Unknown) IBS (irritable bowel syndrome) Tinea corporis Tinea pedis Surgical History History of radical prostatectomy S/P colonoscopy Family History Father Heart disease Son Heart disease Brother Heart disease Hypertension Paternal Grandfather Stroke aneurysm Social History Smoking/Tobacco Use Status: Former Tobacco Use Smoking risk assessment performed?: Yes Alcohol Intake: former Drug use: Never Substance use type: does not use Do you feel safe at home: Yes Do you feel safe in your relationship?: Yes Course Vital Signs Vital signs: Vital Signs Temperature 37.3 C 07/27/23 13:36 Pulse 83 07/27/23 13:36 Respiratory Rate 18 07/27/23 13:36 Blood Pressure 128/70 07/27/23 13:36 Pulse Oximetry 97 07/27/23 13:36 Temperature 37.3 C 07/27/23 13:36 Pulse 83 07/27/23 13:36 Respiratory Rate 18 07/27/23 13:36 Respiratory Effort Short of Breath 07/27/23 14:11 Respiratory Depth Normal 07/27/23 14:11 Respiratory Pattern Normal 07/27/23 14:11 Blood Pressure 128/70 07/27/23 13:36 Blood Pressure Position Supine 07/27/23 13:36 Pulse Oximetry 97 07/27/23 13:36 Oxygen Delivery Method Room Air 07/27/23 13:36 Oxygen Flow Rate 0 07/27/23 13:36
== END 2023-07-27 14:59 | disposition home or self-care (01) ==
PROVIDERS: Emergency Provider Physician Assistant; PCP Nurse Practitioner Family
DX: U07.1 COVID-19 (principal); J12.82 Pneumonia due to coronavirus disease 2019
CPT/HCPCS: 99283; 71046

== ENCOUNTER 2024-10-08 15:55 | Outpatient (CLI) | payer OTHER, SELFPAY ==
--- NOTE | 2024-10-08 14:00 | DI.RAD_ITS ---
Exam(s) XR SHOULDER RT COMPLETE 2+V EXAM: XR SHOULDER RT COMPLETE 2+V CLINICAL HISTORY: right scapula pain. TECHNIQUE: 2D digital imaging was performed. COMPARISON: CR XR CHEST 2V PA LATERAL from 07/27/2023 FINDINGS: 3 views There is no evidence of acute fracture or dislocation of the glenohumeral joint. However, there is u pward subluxation of the humeral head within the glenoid fossa evident on the [place] view. There ar e also downgoing osteophytes at the level of the acromioclavicular joint most probably causing elemen t of impingement upon the rotator cuff mechanism at this level. There are no calcifications evident in the subacromial space nor adjacent to the greater tuberosity. There are mild degenerative changes in glenohumeral joint. Incidentally noted is evidence of prior surgery in the right lung. IMPRESSION: There is element of upward subluxation of the humeral head within the osseous glenoid. Also degenera tive changes in the AC joint which are most probably causing rotator cuff impingement at this level. If clinically indicated follow-up shoulder MRI can be performed. DATA REPOSITORY: RADIATION DOSE DELIVERED:
== END 2024-10-08 15:56 | disposition home or self-care (01) ==
LOC: DIORS 15:56
PROVIDERS: PCP Nurse Practitioner Family; Visit Provider Physician Assistant
DX: M89.8X1 Other specified disorders of bone, shoulder (principal)
CPT/HCPCS: 73030